=== PATIENT | male | born 1940 | race Caucasian/White ===

== ENCOUNTER 2016-11-26 13:17 | Outpatient (CLI) | payer MEDICARE, OTHER | END 2016-11-26 13:18 | disposition home or self-care (01) | DX: R50.9 Fever, unspecified (principal) ==

== ENCOUNTER 2016-12-09 10:12 | Outpatient (CLI) | payer MEDICARE, OTHER | END 2016-12-09 10:13 | disposition home or self-care (01) | DX: S92.321A Displaced fracture of second metatarsal bone, right foot, initial encounter for closed fracture (principal); S92.331A Displaced fracture of third metatarsal bone, right foot, initial encounter for closed fracture; X58.XXXA Exposure to other specified factors, initial encounter ==

== ENCOUNTER 2017-01-15 13:49 | Outpatient (CLI) | payer MEDICARE, OTHER | END 2017-01-15 13:50 | disposition home or self-care (01) | DX: S92.321D Displaced fracture of second metatarsal bone, right foot, subsequent encounter for fracture with routine healing (principal); S92.331D Displaced fracture of third metatarsal bone, right foot, subsequent encounter for fracture with routine healing ==

== ENCOUNTER 2017-01-20 07:30 | Outpatient (CLI) | payer MEDICARE, OTHER | END 2017-01-20 07:31 | disposition home or self-care (01) | DX: Z94.1 Heart transplant status (principal) ==

== ENCOUNTER 2017-02-18 16:58 | Outpatient (CLI) | payer MEDICARE, OTHER | END 2017-02-18 16:59 | disposition home or self-care (01) | DX: S92.324D Nondisplaced fracture of second metatarsal bone, right foot, subsequent encounter for fracture with routine healing (principal); S92.334D Nondisplaced fracture of third metatarsal bone, right foot, subsequent encounter for fracture with routine healing ==

== ENCOUNTER 2017-03-10 08:00 | Outpatient (CLI) | payer MEDICARE, OTHER | END 2017-03-10 08:01 | LOC: LAB.R 08:00 | PROVIDERS: ATTEND Internal Medicine Advanced Heart Failure and Transplant Cardiology | DX: R19.7 Diarrhea, unspecified (principal); Z94.1 Heart transplant status | CPT/HCPCS: 87045; 87046; 87177; 87209; 87493 ==

== ENCOUNTER 2017-03-11 08:00 | Outpatient (CLI) | payer MEDICARE, OTHER ==
[2017-03-11 08:39] LABS: BASOPHILS % (AUTO) 0.4 %; EOSINOPHILS % (AUTO) 0.6 %; HCT - HEMATOCRIT 35.5 % (42.0-52.0); HGB - HEMOGLOBIN 12.1 g/dL (14.0-18.0); LYMPHOCYTES # (AUTO) 0.8 10^3/uL (1.5-3.5); LYMPHOCYTES % (AUTO) 13.6 %; MEAN CORPUSCULAR HEMOGLOBIN 28.1 pg (27.0-31.0); MEAN CORPUSCULAR HGB CONC 34.2 g/dL (32.0-36.0); MEAN CORPUSCULAR VOLUME 82.2 fL (80.0-94.0); MEAN PLATELET VOLUME 8.5 fL (7.4-11.4); MONOCYTES # (AUTO) 0.5 10^3/uL (0.0-1.0); MONOCYTES % (AUTO) 8.3 %; NEUTROPHILS # (AUTO) 4.8 10^3/uL (1.5-6.6); NEUTROPHILS % (AUTO) 77.1 %; NUCLEATED RED BLOOD CELLS AUTO 0.1 /100WBC; RED BLOOD COUNT 4.32 10^6/uL (4.70-6.10); RED CELL DISTRIBUTION WIDTH 16.7 % (12.0-15.0); UNCORRECTED WHITE BLOOD COUNT 6.2 x10^3/uL; WHITE BLOOD COUNT 6.2 x10^3/uL (4.8-10.8)
[2017-03-11 08:59] LABS: CALCIUM 8.5 mg/dL (8.5-10.3); CREATININE 2.9 mg/dL (0.6-1.2); POTASSIUM 3.7 mmol/L (3.5-5.0)
[2017-03-13 11:05] LABS: TEST RESULT REPORT (())
== END 2017-03-11 08:01 | disposition home or self-care (01) ==
LOC: LAB 08:00
PROVIDERS: ATTEND Internal Medicine Advanced Heart Failure and Transplant Cardiology
DX: Z94.1 Heart transplant status (principal); R31.9 Hematuria, unspecified; R19.7 Diarrhea, unspecified; R50.9 Fever, unspecified
CPT/HCPCS: 36415; 80048; 80195; 81599; 85025; 87040; 87086

== ENCOUNTER 2017-03-20 08:03 | Outpatient (CLI) | payer MEDICARE, OTHER ==
[2017-03-20 08:34] LABS: ALBUMIN/GLOBULIN RATIO 0.9 (1.0-2.2); BILIRUBIN,TOTAL 0.4 mg/dL (0.2-1.0); CALCIUM 9.1 mg/dL (8.5-10.3); CREATININE 4.8 mg/dL (0.6-1.2); POTASSIUM 4.2 mmol/L (3.5-5.0); TOTAL PROTEIN 6.2 g/dL (6.7-8.2)
== END 2017-03-20 08:04 | disposition home or self-care (01) ==
LOC: LAB 08:03
PROVIDERS: ATTEND Internal Medicine
DX: N17.9 Acute kidney failure, unspecified (principal); N18.9 Chronic kidney disease, unspecified
CPT/HCPCS: 36415; 80053

== ENCOUNTER 2017-03-26 07:54 | Outpatient (CLI) | payer MEDICARE, OTHER ==
[2017-03-28 16:53] LABS: TEST RESULT REPORT (())
== END 2017-03-26 07:55 | disposition home or self-care (01) ==
LOC: LAB 07:54
PROVIDERS: ATTEND Internal Medicine
DX: Z94.1 Heart transplant status (principal)
CPT/HCPCS: 36415; 80053; 80195; 81599

== ENCOUNTER 2017-03-26 09:05 | Outpatient (CLI) | payer MEDICARE, OTHER ==
[2017-03-26 16:05] LABS: ALBUMIN/GLOBULIN RATIO 1.1 (1.0-2.2); BILIRUBIN,TOTAL 0.4 mg/dL (0.2-1.0); CALCIUM 8.7 mg/dL (8.5-10.3); CREATININE 4.6 mg/dL (0.6-1.2); POTASSIUM 4.2 mmol/L (3.5-5.0); TOTAL PROTEIN 6.4 g/dL (6.7-8.2)
== END 2017-03-26 09:06 | disposition home or self-care (01) ==
LOC: LAB.R 09:05
PROVIDERS: ATTEND Physician Assistant Medical
DX: N18.9 Chronic kidney disease, unspecified (principal)
CPT/HCPCS: 80053

== ENCOUNTER 2017-04-29 09:59 | Outpatient (CLI) | payer MEDICARE, OTHER ==
[2017-04-29 10:54] LABS: CALCIUM 8.7 mg/dL (8.5-10.3); MAGNESIUM 2.4 mg/dL (1.7-2.8); PHOSPHORUS 3.6 mg/dL (2.5-4.6)
== END 2017-04-29 10:00 | disposition home or self-care (01) ==
LOC: LAB 09:59
PROVIDERS: ATTEND Internal Medicine Nephrology
DX: Z94.1 Heart transplant status (principal)
CPT/HCPCS: 36415; 80069; 82570; 83735; 84133; 84156

== ENCOUNTER 2017-05-24 09:19 | Outpatient (CLI) | payer MEDICARE, OTHER ==
--- NOTE | 2017-05-24 17:55 | Ultrasound Report ---
EXAM: INGUINAL ULTRASOUND EXAM DATE: 05/24/2017 09:48 AM. CLINICAL HISTORY: 1 week of intermittent right groin pain. COMPARISON: None. TECHNIQUE: Real-time sonographic imaging of the inguinal canals and vascular structures, including co angel-flow, was performed by the piece dyeing machine tender. Multiple pharmaceutical specialty representative static images were saved for revi ew. FINDINGS: Hernia: Right inguinal hernia neck measures approximately 1.2 x 1.0 cm in diameter. The hernia sac co ntains bowel and measures approximately 5 x 2 cm with the patient in upright position. The hernia is easily reducible with probe pressure. Soft Tissues: No fluid collection or adenopathy demonstrated. Other: None. IMPRESSION: Reducible, bowel-containing right inguinal hernia. [facility] Referring Provider Line: [phone] SITE ID: [id number]
== END 2017-05-24 09:20 | disposition home or self-care (01) ==
LOC: DI 09:19
PROVIDERS: ATTEND Physician Assistant Medical
DX: K40.90 Unilateral inguinal hernia, without obstruction or gangrene, not specified as recurrent (principal)
CPT/HCPCS: 76857

== ENCOUNTER 2017-08-04 09:44 | Outpatient (CLI) | payer MEDICARE, OTHER | END 2017-08-04 09:45 | disposition home or self-care (01) | LOC: SC 09:44 | PROVIDERS: ATTEND Specialist | DX: G47.33 Obstructive sleep apnea (adult) (pediatric) (principal) | CPT/HCPCS: 99205; G0463; 99212 ==

== ENCOUNTER 2017-08-19 09:25 | Outpatient (CLI) | payer MEDICARE, OTHER ==
[2017-08-19 09:35] LABS: BASOPHILS % (AUTO) 0.9 %; EOSINOPHILS # (AUTO) 0.2 10^3/uL (0.0-0.7); EOSINOPHILS % (AUTO) 3.6 %; HCT - HEMATOCRIT 35.7 % (42.0-52.0); HGB - HEMOGLOBIN 11.9 g/dL (14.0-18.0); LYMPHOCYTES # (AUTO) 1.4 10^3/uL (1.5-3.5); LYMPHOCYTES % (AUTO) 31.2 %; MEAN CORPUSCULAR HEMOGLOBIN 28.2 pg (27.0-31.0); MEAN CORPUSCULAR HGB CONC 33.3 g/dL (32.0-36.0); MEAN CORPUSCULAR VOLUME 84.7 fL (80.0-94.0); MEAN PLATELET VOLUME 8.3 fL (7.4-11.4); MONOCYTES # (AUTO) 0.5 10^3/uL (0.0-1.0); MONOCYTES % (AUTO) 10.4 %; NEUTROPHILS # (AUTO) 2.5 10^3/uL (1.5-6.6); NEUTROPHILS % (AUTO) 53.9 %; RED BLOOD COUNT 4.22 10^6/uL (4.70-6.10); RED CELL DISTRIBUTION WIDTH 13.1 % (12.0-15.0); UNCORRECTED WHITE BLOOD COUNT 4.6 x10^3/uL; WHITE BLOOD COUNT 4.6 x10^3/uL (4.8-10.8)
== END 2017-08-19 09:26 | disposition home or self-care (01) ==
LOC: LAB 09:25
PROVIDERS: ATTEND Internal Medicine Advanced Heart Failure and Transplant Cardiology
DX: Z94.1 Heart transplant status (principal)
CPT/HCPCS: 36415; 85025

== ENCOUNTER 2017-09-13 20:28 | Outpatient (CLI) | payer MEDICARE, OTHER | END 2017-09-13 20:29 | disposition home or self-care (01) | LOC: SC 20:28 | PROVIDERS: ATTEND Specialist | DX: G47.33 Obstructive sleep apnea (adult) (pediatric) (principal); G47.61 Periodic limb movement disorder | CPT/HCPCS: 95810 ==

== ENCOUNTER 2017-10-08 13:48 | Outpatient (CLI) | payer MEDICARE, OTHER | END 2017-10-08 13:49 | disposition home or self-care (01) | LOC: SC 13:48 | PROVIDERS: ATTEND Specialist | DX: G47.33 Obstructive sleep apnea (adult) (pediatric) (principal) | CPT/HCPCS: 99214; G0463; 99212 ==

== ENCOUNTER 2017-10-11 16:53 | Emergency (ER) | payer MEDICARE, OTHER ==
--- NOTE | 2017-10-11 17:18 | ED Physician Documentation ---
History of Present Illness - Stated complaint Stated Complaint: PVC'S - Chief complaint Chief Complaint: Cardiac - History obtained from History obtained from: Patient, Family - History of Present Illness Timing: Other (77-year-old gentleman status post heart transplant year 1999 with an episode of rejection in 2013, recently taken off prednisone about 17 days ago. Maintained on Rapamune and mycophenolate. He has been fatigued for the last 3 months and more acutely over the last week has left lower extremity edema which is new, he always has chronic right lower extremity edema. He denies any dyspnea or chest pain but feels like he is having PVCs tonight, the only other time he has had arrhythmias with his current heart is when he had a rejection back in 2013. There is no associated fever.) - Additonal information Additional information: Because of his antirejection medications he has been dealing with chronic kidney disease lately, he says the last creatinine he had done was at the [facility] approximately 2 weeks ago, it was 3.1. Review of Systems Constitutional: reports: Fatigue. denies: Fever, Chills Eyes: reports: Reviewed and negative Ears: reports: Reviewed and negative Nose: reports: Reviewed and negative Throat: reports: Reviewed and negative Cardiac: reports: Palpitations, Pedal edema, Calf pain. denies: Chest pain / pressure Respiratory: denies: Dyspnea, Cough GI: denies: Abdominal Pain, Nausea PD PAST MEDICAL HISTORY - Past Medical History Cardiovascular: Hypertension, High cholesterol Respiratory: None Neuro: None Endocrine/Autoimmune: None GI: None : None HEENT: None Psych: None Musculoskeletal: None Derm: None - Past Surgical History Past Surgical History: Yes General: Cholecystectomy Cardiovascular: Other - Present Medications Home Medications: Ambulatory Orders Medication Instructions Recorded Confirmed Aspirin [Aspir 81] 81 mg PO DAILY 04/19/13 10/11/17 Calcium Citrate/Vitamin D3 1 each PO DAILY 04/19/13 10/11/17 [Calcium Citrate - Vit D Caplet] Multivitamin [Multivitamins] 1 each PO DAILY 04/19/13 10/11/17 Pravastatin Sodium [Pravachol] 20 mg PO DAILY 04/19/13 10/11/17 Sildenafil Citrate [Viagra] 12.5 mg PO DAILY PRN 04/19/13 10/11/17 Zaleplon [Sonata] 5 mg PO DAILY PRN 05/02/13 10/11/17 Sirolimus [Rapamune] 2 mg PO DAILY 08/22/14 10/11/17 Losartan Potassium 25 mg PO DAILY 10/11/17 10/11/17 Mycophenolate Mofetil 750 mg PO DAILY 10/11/17 10/11/17 - Allergies Allergies/Adverse Reactions: Allergies Allergy/AdvReac Type Severity Reaction Status Date / Time droperidol [Droperidol] Allergy Severe Hallucinati Verified 04/28/14 09:03 ons codeine phosphate * Allergy Mild Rash Verified 10/11/17 17:04 [From Tylenol-Codeine #3] acetaminophen Allergy Unknown UNKNOWN Verified 04/28/14 09:03 [From Tylenol-Codeine #3] avocado [Avocado] Allergy Hives Verified 04/28/14 09:03 RAPAMYCIN Allergy Intermediate Rash Uncoded 04/28/14 09:03 - Social History Does the pt smoke?: No Smoking Status: Former smoker Does the pt drink ETOH?: No Does the pt have substance abuse?: No - Family History Family history: reports: Non contributory - Immunizations Immunizations are current?: Yes PD ED PE NORMAL - Vitals Vital signs reviewed: Yes - General General: Alert and oriented X 3, No acute distress - HEENT HEENT: PERRL, EOMI - Neck Neck: Supple, no meningeal sign, No bony TTP - Cardiac Cardiac: RRR (With occasional PVCs, also has a very subtle diastolic murmur heard at the right upper sternal border.) - Respiratory Respiratory: No respiratory distress, Clear bilaterally - Abdomen Abdomen: Normal bowel sounds, Soft, Non tender - Back Back: No CVA TTP, No spinal TTP - Derm Derm: Normal color, Warm and dry - Extremities Extremities: No calf tenderness / cord, Other (2 BLE edema) - Neuro Neuro: Alert and oriented X 3, Normal speech - Psych Psych: Normal mood, Normal affect Results - Vitals Vitals: Vital Signs - 24 hr 10/11/17 10/11/17 17:00 17:58 Temperature 37.2 C Heart Rate 90 88 Respiratory 18 21 Rate Blood Pressure 155/67 H 143/68 H O2 Saturation 100 100 Oxygen O2 Source Room air - EKG (time done) 1700 Rate: Rate (enter#) (91) Rhythm: NSR (Regular narrow complex rhythm with long [place] Interval. And frequent monomorphic PVCs) [place]: Normal Intervals: RBBB Ischemia: No: ST elevation c/w ischemia Computer interpretation: Agree with computer - Labs Labs: Laboratory Tests 10/11/17 10/11/17 10/11/17 17:15 17:15 17:15 WBC 4.5 L RBC 3.74 L Hgb 10.5 L Hct 31.4 L MCV 84.0 MCH 28.2 MCHC 33.5 RDW 13.6 Plt Count 140 MPV 8.6 Neut # 2.8 Lymph # 1.1 L [place] # 0.5 Eos # 0.2 Baso # 0.0 Absolute Nucleated RBC 0.00 Nucleated RBC % 0.0 PT 12.2 INR 1.1 Sodium 134 L Potassium 3.8 Chloride 98 L Carbon Dioxide 22 Anion Gap 14.0 H BUN 65 H Creatinine 3.3 H Estimated GFR (MDRD) 18 L Glucose 118 H Calcium 8.8 Magnesium 2.2 Total Bilirubin 0.5 AST 21 ALT 19 Alkaline Phosphatase 50 Total Creatine Kinase 97 CK-MB (CK-2) Troponin I B-Natriuretic Peptide Total Protein 6.6 L Albumin 3.4 Globulin 3.2 Albumin/Globulin Ratio 1.1 Lipase 25 TSH Urine Color Urine Clarity Urine pH Ur Specific [place] Urine Protein Urine Glucose (UA) Urine Ketones Urine Occult Blood Urine Nitrite Urine Bilirubin Urine Urobilinogen Ur Leukocyte Esterase Ur Microscopic Review Urine Culture Comments 10/11/17 10/11/17 10/11/17 17:15 17:15 17:15 WBC RBC Hgb Hct MCV MCH MCHC RDW Plt Count MPV Neut # Lymph # [place] # Eos # Baso # Absolute Nucleated RBC Nucleated RBC % PT INR Sodium Potassium Chloride Carbon Dioxide Anion Gap BUN Creatinine Estimated GFR (MDRD) Glucose Calcium Magnesium Total Bilirubin AST ALT Alkaline Phosphatase Total Creatine Kinase CK-MB (CK-2) 1.1 Troponin I < 0.04 B-Natriuretic Peptide 258 H Total Protein Albumin Globulin Albumin/Globulin Ratio Lipase TSH 3.64 Urine Color Urine Clarity Urine pH Ur Specific [place] Urine Protein Urine Glucose (UA) Urine Ketones Urine Occult Blood Urine Nitrite Urine Bilirubin Urine Urobilinogen Ur Leukocyte Esterase Ur Microscopic Review Urine Culture Comments 10/11/17 17:59 WBC RBC Hgb Hct MCV MCH MCHC RDW Plt Count MPV Neut # Lymph # [place] # Eos # Baso # Absolute Nucleated RBC Nucleated RBC % PT INR Sodium Potassium Chloride Carbon Dioxide Anion Gap BUN Creatinine Estimated GFR (MDRD) Glucose Calcium Magnesium Total Bilirubin AST ALT Alkaline Phosphatase Total Creatine Kinase CK-MB (CK-2) Troponin I B-Natriuretic Peptide Total Protein Albumin Globulin Albumin/Globulin Ratio Lipase TSH Urine Color YELLOW Urine Clarity CLEAR Urine pH 6.0 Ur Specific [place] 1.020 Urine Protein TRACE Urine Glucose (UA) NEGATIVE Urine Ketones NEGATIVE Urine Occult Blood TRACE-INTA Urine Nitrite NEGATIVE Urine Bilirubin NEGATIVE Urine Urobilinogen 0.2 (NORMAL) Ur Leukocyte Esterase NEGATIVE Ur Microscopic Review NOT INDICATED Urine Culture Comments NOT INDICATED - Rads (name of study) 2v chest Radiology: EMP read contemporaneously (NAD) BLE duplex Radiology: Prelim report reviewed (neg for DVT bilaterally) PD MEDICAL DECISION MAKING - ED course ED course: 77yo male with H/O heart transplant with fatigue and PVCs. Mild increase in chronic anemia and renal failure. PVCs decreased with time in the ED. Potassium orally for value <4. Spoke with Dr Zabala at [facility] cardiology and needs expedited workup for this with echo +/- bx. He was accepted by him to [facility]. Departure - Departure Disposition: 02 Transfer Acute Care Hosp Clinical Impression: Frequent PVCs, Heart transplant recipient Fatigue Qualifiers: Fatigue type: unspecified Qualified Code(s): R53.83 - Other fatigue Chronic renal failure Qualifiers: Chronic kidney disease stage: stage 4 (severe) Qualified Code(s): N18.4 - Chronic kidney disease, stage 4 (severe) Condition: Stable
[2017-10-11 17:28] LABS: BASOPHILS % (AUTO) 0.7 %; EOSINOPHILS # (AUTO) 0.2 10^3/uL (0.0-0.7); EOSINOPHILS % (AUTO) 3.3 %; HCT - HEMATOCRIT 31.4 % (42.0-52.0); HGB - HEMOGLOBIN 10.5 g/dL (14.0-18.0); LYMPHOCYTES # (AUTO) 1.1 10^3/uL (1.5-3.5); LYMPHOCYTES % (AUTO) 23.2 %; MEAN CORPUSCULAR HEMOGLOBIN 28.2 pg (27.0-31.0); MEAN CORPUSCULAR HGB CONC 33.5 g/dL (32.0-36.0); MEAN PLATELET VOLUME 8.6 fL (7.4-11.4); MONOCYTES # (AUTO) 0.5 10^3/uL (0.0-1.0); MONOCYTES % (AUTO) 10.5 %; NEUTROPHILS # (AUTO) 2.8 10^3/uL (1.5-6.6); NEUTROPHILS % (AUTO) 62.3 %; RED BLOOD COUNT 3.74 10^6/uL (4.70-6.10); RED CELL DISTRIBUTION WIDTH 13.6 % (12.0-15.0); UNCORRECTED WHITE BLOOD COUNT 4.5 x10^3/uL; WHITE BLOOD COUNT 4.5 x10^3/uL (4.8-10.8)
[2017-10-11 17:35] LABS: INR 1.1 (0.8-1.2); PT - PROTHROMBIN TIME 12.2 secs (9.9-12.6)
[2017-10-11 17:44] LABS: ALBUMIN/GLOBULIN RATIO 1.1 (1.0-2.2); BILIRUBIN,TOTAL 0.5 mg/dL (0.2-1.0); CALCIUM 8.8 mg/dL (8.5-10.3); CREATININE 3.3 mg/dL (0.6-1.2); MAGNESIUM 2.2 mg/dL (1.7-2.8); POTASSIUM 3.8 mmol/L (3.5-5.0); TOTAL PROTEIN 6.6 g/dL (6.7-8.2)
[2017-10-11 17:47] LABS: TROPONIN I < 0.04 ng/mL (<0.49)
[2017-10-11 17:49] LABS: CREATINE KINASE MB 1.1 ng/mL (0.6-6.3)
[2017-10-11] MEDS ORDERED: POTASSIUM BICARB 25 MEQ TABLET PO STA (17:58)
[2017-10-11 18:03] LABS: BILIRUBIN,URINE NEGATIVE (NEGATIVE)
[2017-10-11 18:07] LABS: UA CHARGE (STRIP ONLY) YES; UR CULTURE IF IND NOT INDICATED
--- NOTE | 2017-10-11 18:56 | XRAY Preliminary Report ---
Exam: XR CHEST 2 VIEW PA/LAT IMPRESSION: No evidence of acute cardiopulmonary disease. [facility] SITE ID: [id number]
--- NOTE | 2017-10-11 18:59 | XRAY Report ---
EXAM: CHEST RADIOGRAPHY EXAM DATE: 10/11/2017 05:36 PM. CLINICAL HISTORY: Fatigue, s/p remote heart xplant. COMPARISON: 10/20/2014. TECHNIQUE: 2 views. FINDINGS: Lungs/Pleura: No focal opacities evident. No pleural effusion. No pneumothorax. Normal volumes. Mediastinum: Stable postoperative changes. Other: None. IMPRESSION: No evidence of acute cardiopulmonary disease. [facility] Referring Provider Line: [phone] SITE ID: [id number]
--- NOTE | 2017-10-11 19:17 | Ultrasound Preliminary Report ---
Exam: US DUPLEX EXT VEINS BILATERAL IMPRESSION: No evidence for deep venous thrombosis bilaterally. [facility] SITE ID: [id number]
--- NOTE | 2017-10-11 19:19 | Ultrasound Report ---
EXAM: BILATERAL LOWER EXTREMITY VENOUS ULTRASOUND EXAM DATE: 10/11/2017 06:50 PM. CLINICAL HISTORY: Chronic RLE edema. New LLE edema. COMPARISON: 08/12/2016. TECHNIQUE: Real-time sonographic vascular imaging was performed by the car driver through the lower extremities utilizing both color-flow and Doppler spectral analysis. Multiple housing management representative static i mages were saved for review. FINDINGS: Right: Common Femoral Vein (CFV): Normal. CFV-GSV Junction: Normal. Profunda Femoral Vein (PFV): Normal. Femoral Vein (FV) Prox: Normal. Femoral Vein (FV) Mid: Normal. Femoral Vein (FV) Dist: Normal. Popliteal Vein: Normal. Posterior Tibial Veins: Normal. Peroneal Veins: Normal. Left: Common Femoral Vein (CFV): Normal. CFV-GSV Junction: Normal. Profunda Femoral Vein (PFV): Normal. Femoral Vein (FV) Prox: Normal. Femoral Vein (FV) Mid: Normal. Femoral Vein (FV) Dist: Normal. Popliteal Vein: Normal. Posterior Tibial Veins: Normal. Peroneal Veins: Normal. Other: None. IMPRESSION: No evidence for deep venous thrombosis bilaterally. [facility] Referring Provider Line: [phone] SITE ID: [id number]
[2017-10-11 20:28] VITALS: BP 139/59
== END 2017-10-11 20:55 | disposition short-term general hospital (02) ==
LOC: ED 16:53
DX: I49.3 Ventricular premature depolarization (principal); Z94.1 Heart transplant status; I12.9 Hypertensive chronic kidney disease with stage 1 through stage 4 chronic kidney disease, or unspecified chronic kidney disease; N18.4 Chronic kidney disease, stage 4 (severe); D63.1 Anemia in chronic kidney disease; R53.83 Other fatigue; I45.2 Bifascicular block; R94.31 Abnormal electrocardiogram [ECG] [EKG]; E78.00 Pure hypercholesterolemia, unspecified; Z79.82 Long term (current) use of aspirin; Z87.891 Personal history of nicotine dependence
CPT/HCPCS: 36415; 71020; 80053; 81003; 82550; 82553; 83690; 83735; 83880; 84443; 84484; 85025; 85610; 93005; 93970; 99284; A9270; 81001; 87086

== ENCOUNTER 2017-10-11 20:58 | Outpatient (CLI) | payer MEDICARE, OTHER | END 2017-10-11 20:59 | disposition short-term general hospital (02) | LOC: EMS 20:58 | PROVIDERS: ATTEND Surgery | DX: I49.3 Ventricular premature depolarization (principal); Z94.1 Heart transplant status | CPT/HCPCS: A0170; A0425; A0426 ==

== ENCOUNTER 2017-11-23 12:09 | Outpatient (CLI) | payer MEDICARE, OTHER | END 2017-11-23 12:10 | disposition home or self-care (01) | LOC: LAB.R 12:09 | PROVIDERS: ATTEND Internal Medicine | DX: M25.539 Pain in unspecified wrist (principal) | CPT/HCPCS: 36415; 84550 ==

== ENCOUNTER 2017-11-24 16:40 | Outpatient (CLI) | payer MEDICARE, OTHER ==
--- NOTE | 2017-11-25 09:40 | XRAY Report ---
DATE OF SERVICE: 11/24/2017 TWO VIEW RIGHT WRIST: 11/24/2017 CLINICAL INDICATION: Pain. FINDINGS: Frontal and lateral views of the right wrist demonstrate moderate osteoarthritis of the first carpometacarpal joint. Chondrocalcinosis is noted. There is no evidence of acute fracture or dislocation. IMPRESSION: MODERATE OSTEOARTHRITIS, WITH CHONDROCALCINOSIS. TD: 11/25/2017 10:39
== END 2017-11-24 16:41 | disposition home or self-care (01) ==
LOC: DI 16:40
PROVIDERS: ATTEND Internal Medicine Nephrology
DX: M25.531 Pain in right wrist (principal); M19.031 Primary osteoarthritis, right wrist; M11.231 Other chondrocalcinosis, right wrist

== ENCOUNTER 2017-12-01 10:15 | Outpatient (CLI) | payer MEDICARE, OTHER | END 2017-12-01 10:16 | disposition home or self-care (01) | LOC: SC 10:15 | PROVIDERS: ATTEND Nurse Practitioner Family | DX: G47.33 Obstructive sleep apnea (adult) (pediatric) (principal) | CPT/HCPCS: 99213; G0463; 99212 ==

== ENCOUNTER 2018-02-16 09:07 | Outpatient (CLI) | payer MEDICARE, OTHER ==
[2018-02-16 09:38] LABS: ALBUMIN 4.1 g/dL (3.2-5.5); ALBUMIN/GLOBULIN RATIO 1.6 (1.0-2.2); BILIRUBIN,TOTAL 0.5 mg/dL (0.2-1.0); CALCIUM 8.8 mg/dL (8.5-10.3); CREATININE 3.1 mg/dL (0.6-1.2); TOTAL PROTEIN 6.6 g/dL (6.7-8.2)
[2018-02-16 09:42] LABS: BASOPHILS % (AUTO) 0.6 %; EOSINOPHILS # (AUTO) 0.1 10^3/uL (0.0-0.7); EOSINOPHILS % (AUTO) 2.2 %; HGB - HEMOGLOBIN 11.7 g/dL (14.0-18.0); LYMPHOCYTES # (AUTO) 1.4 10^3/uL (1.5-3.5); MEAN CORPUSCULAR HEMOGLOBIN 27.9 pg (27.0-31.0); MEAN CORPUSCULAR HGB CONC 33.1 g/dL (32.0-36.0); MEAN CORPUSCULAR VOLUME 84.2 fL (80.0-94.0); MEAN PLATELET VOLUME 8.6 fL (7.4-11.4); MONOCYTES # (AUTO) 0.6 10^3/uL (0.0-1.0); MONOCYTES % (AUTO) 11.2 %; PLT - PLATELET COUNT 139 10^3/uL (130-450); RED CELL DISTRIBUTION WIDTH 16.2 % (12.0-15.0)
== END 2018-02-16 09:08 | disposition home or self-care (01) ==
LOC: LAB 09:07
PROVIDERS: ATTEND Physician Assistant Medical
DX: M1A.9XX0 Chronic gout, unspecified, without tophus (tophi) (principal); Z79.899 Other long term (current) drug therapy
CPT/HCPCS: 36415; 80053; 84550; 85025

== ENCOUNTER 2018-03-02 10:46 | Outpatient (CLI) | payer MEDICARE, OTHER | END 2018-03-02 10:47 | disposition home or self-care (01) | LOC: SC 10:46 | PROVIDERS: ATTEND Nurse Practitioner Family | DX: G47.33 Obstructive sleep apnea (adult) (pediatric) (principal) | CPT/HCPCS: 99214; G0463; 99212 ==

== ENCOUNTER 2018-04-21 08:21 | Outpatient (CLI) | payer MEDICARE, OTHER | END 2018-04-21 08:22 | disposition home or self-care (01) | LOC: LAB 08:21 | PROVIDERS: ATTEND Internal Medicine Advanced Heart Failure and Transplant Cardiology | DX: Z94.1 Heart transplant status (principal) | CPT/HCPCS: 36415; 80195; 81599 ==

== ENCOUNTER 2018-05-03 09:52 | Outpatient (CLI) | payer MEDICARE, OTHER | END 2018-05-03 09:53 | disposition home or self-care (01) | LOC: SC 09:52 | PROVIDERS: ATTEND Nurse Practitioner Family | DX: G47.33 Obstructive sleep apnea (adult) (pediatric) (principal) | CPT/HCPCS: 99214; G0463; 99212 ==

== ENCOUNTER 2018-05-06 07:46 | Outpatient (CLI) | payer MEDICARE, OTHER ==
[2018-05-06 08:49] LABS: HGB - HEMOGLOBIN 11.2 g/dL (14.0-18.0); MEAN CORPUSCULAR HEMOGLOBIN 28.9 pg (27.0-31.0); MEAN CORPUSCULAR HGB CONC 33.5 g/dL (32.0-36.0); MEAN CORPUSCULAR VOLUME 86.2 fL (80.0-94.0); MEAN PLATELET VOLUME 8.9 fL (7.4-11.4); RED BLOOD COUNT 3.89 10^6/uL (4.70-6.10); RED CELL DISTRIBUTION WIDTH 14.2 % (12.0-15.0); WHITE BLOOD COUNT 3.1 x10^3/uL (4.8-10.8)
[2018-05-06 09:05] LABS: CALCIUM 8.7 mg/dL (8.5-10.3); CREATININE 3.1 mg/dL (0.6-1.2)
== END 2018-05-06 07:47 | disposition home or self-care (01) ==
LOC: LAB 07:46
PROVIDERS: ATTEND Internal Medicine Nephrology
DX: N18.4 Chronic kidney disease, stage 4 (severe) (principal); Z94.1 Heart transplant status
CPT/HCPCS: 36415; 80048; 81599; 83970; 85027

== ENCOUNTER 2018-08-04 08:43 | Outpatient (CLI) | payer MEDICARE, OTHER | END 2018-08-04 08:44 | disposition home or self-care (01) | LOC: SC 08:43 | PROVIDERS: ATTEND Nurse Practitioner Family | DX: G47.33 Obstructive sleep apnea (adult) (pediatric) (principal) | CPT/HCPCS: 99214; G0463; 99212 ==

== ENCOUNTER 2018-09-28 18:01 | Outpatient (CLI) | payer MEDICARE, OTHER ==
--- NOTE | 2018-10-01 05:40 | XRAY Report ---
Reason: ACUTE PAIN LT FOREFOOT Procedure Date: 09/28/2018 Accession Number: [id number] / [id number] Procedure: XR - Foot 3 View LT CPT Code: FULL RESULT: EXAM: LEFT FOOT RADIOGRAPHY EXAM DATE: 09/28/2018 06:12 PM. CLINICAL HISTORY: Acute pain left forefoot. COMPARISON: FOOT 3 VIEW RT 02/18/2017 5:01 PM FOOT 3 VIEW LT 03/11/2016 4:06 PM. TECHNIQUE: 3 views. FINDINGS: Bones: Mildly displaced transverse fracture through the proximal shaft of the second metatarsal. Irregularity at the base of the third metatarsal appears chronic. There is a lucency at the lateral aspect of the base of the fifth metatarsal which is new from the prior study but not clearly acute fracture. Joints: Soft tissue calcification and para-articular erosion at the first metatarsophalangeal joint. No malalignment. Soft Tissues: Normal. No soft tissue swelling. IMPRESSION: 1. Acute mildly displaced fracture at the proximal shaft of the second metatarsal. 2. New nondisplaced at the base of the fifth metatarsal is not clearly an acute fracture but possible. 3. Irregularly of the base of the third metatarsal appears chronic. 4. No definitive foot malalignment. 5. Arthritic changes at the first MTP joint raises question of gout. [facility]
== END 2018-09-28 18:02 | disposition home or self-care (01) ==
LOC: DI 18:01
PROVIDERS: ATTEND Podiatrist
DX: S92.322A Displaced fracture of second metatarsal bone, left foot, initial encounter for closed fracture (principal); S92.355A Nondisplaced fracture of fifth metatarsal bone, left foot, initial encounter for closed fracture; M19.072 Primary osteoarthritis, left ankle and foot

== ENCOUNTER 2018-10-08 15:01 | Outpatient (CLI) | payer MEDICARE, OTHER ==
--- NOTE | 2018-10-12 16:14 | DEXA Report ---
Reason: FRACTURE OF UNSPECIFIED METATARSAL BONE,UNSPECIFIE Procedure Date: 10/08/2018 Accession Number: [id number] / [id number] Procedure: DEX - Dexa Spine and/or Hip CPT Code: FULL RESULT: EXAM: Dexa Spine and/or Hip DATE: 10/08/2018 3:29 PM CLINICAL HISTORY: FRACTURE OF UNSPECIFIED METATARSAL BONE TECHNIQUE: Dual energy x-ray absorptiometry (DXA) was performed on a [employer]. Regions measured are the AP Spine, femoral neck, and if needed forearm. COMPARISON: 09/08/2016 In accordance with the International Society for Clinical Densitometry (ISCD) guidelines, data from previous exams may be reanalyzed using current recommendations and techniques. This is done to allow a more accurate basis for comparison with the current study. FINDINGS: The data for the lumbar spine is as follows: BMD (g/cm/cm) T-SCORE Z-SCORE REGION L1 1.124 -0.3 0.4 L2 1.529 2.4 3.1 L3 1.466 1.9 2.6 L4 1.476 2.0 2.6 TOTAL 1.407 1.6 2.2 NOTE: All evaluable vertebrae are used for classification The data for the hip is as follows: BMD (g/cm/cm) T-SCORE Z-SCORE REGION Neck 0.809 -2.0 -0.6 TOTAL 0.843 -1.8 -0.8 NOTE: The femoral neck or total proximal femur, whichever is lowest, is used for classification. DXA RESULTS SUMMARY: Spine SCAN DATE AGE BMD CHANGE VS CHANGE VS PREVIOUS PREVIOUS % 10/08/2018 78.0 1.407 -0.005 -0.4 09/08/2016 76.0 1.412 * Denotes significant change at the 95% confidence level. Denotes dissimilar scan types or analysis methods. DXA RESULTS SUMMARY: Hip SCAN DATE AGE BMD CHANGE VS CHANGE VS PREVIOUS PREVIOUS % 10/08/2018 78.0 0.843 -0.038* -4.3* 09/08/2016 76.0 0.881 * Denotes significant change at the 95% confidence level. Denotes dissimilar scan types or analysis methods. IMPRESSION: THE WHO CLASSIFICATION BASED ON THE INTERNATIONAL REFERENCE STANDARD IS OSTEOPENIA. THE FRACTURE RISK IS INCREASED. RECOMMENDATION: Patients with diagnosis of osteoporosis or osteopenia should have regular bone mineral density assessment. For those eligible for Medicare, routine testing is allowed once every 2 years. Testing frequency can be increased for patients who have rapidly progressing disease or for those who are receiving medical therapy to restore bone mass. COMMENT: World Health Organization (WHO) definitions for osteoporosis and osteopenia: NORMAL BMD: T-score at -1.0 or higher, fracture risk is low OSTEOPENIA BMD: T-score between -1.0 and -2.5, fracture risk is increased. OSTEOPOROSIS BMD: T-score at -2.5 or lower, fracture risk is high. National Osteoporosis Foundation recommends: 1. Obtain adequate dietary calcium (at least 1200 mg per day) and vitamin D (400-800 international units per day). 2. Participate, as appropriate, in regular weightbearing and muscle-strengthening exercise. 3. Avoid tobacco use and reduce alcohol and caffeine intake. 4. For more detailed information see the website at www.NOF.org.
== END 2018-10-08 15:02 | disposition home or self-care (01) ==
LOC: DI 15:01
PROVIDERS: ATTEND Physician Assistant Medical
DX: M85.88 Other specified disorders of bone density and structure, other site (principal)
CPT/HCPCS: 77080

== ENCOUNTER 2018-10-12 08:00 | Outpatient (CLI) | payer MEDICARE, OTHER ==
[2018-10-12 08:26] LABS: BASOPHILS % (AUTO) 0.9 %; EOSINOPHILS # (AUTO) 0.1 10^3/uL (0.0-0.7); EOSINOPHILS % (AUTO) 1.6 %; HGB - HEMOGLOBIN 11.2 g/dL (14.0-18.0); LYMPHOCYTES % (AUTO) 22.6 %; MEAN CORPUSCULAR HEMOGLOBIN 28.6 pg (27.0-31.0); MEAN CORPUSCULAR HGB CONC 34.1 g/dL (32.0-36.0); MEAN CORPUSCULAR VOLUME 84.1 fL (80.0-94.0); MEAN PLATELET VOLUME 8.2 fL (7.4-11.4); MONOCYTES # (AUTO) 0.5 10^3/uL (0.0-1.0); MONOCYTES % (AUTO) 10.4 %; NEUTROPHILS # (AUTO) 2.9 10^3/uL (1.5-6.6); NEUTROPHILS % (AUTO) 64.5 %; PLT - PLATELET COUNT 147 10^3/uL (130-450); RED BLOOD COUNT 3.93 10^6/uL (4.70-6.10); RED CELL DISTRIBUTION WIDTH 14.3 % (12.0-15.0); WHITE BLOOD COUNT 4.4 x10^3/uL (4.8-10.8)
[2018-10-12 08:47] LABS: ALBUMIN/GLOBULIN RATIO 1.5 (1.0-2.2); ALKALINE PHOSPHATASE 55 IU/L (42-121); ALT ALANINE AMINOTRANSFERASE 18 IU/L (10-60); AST ASPARTATE AMINOTRANSFERASE 19 IU/L (10-42); BILIRUBIN,TOTAL 0.8 mg/dL (0.2-1.0); BUN - BLOOD UREA NITROGEN 57 mg/dL (6-20); CARBON DIOXIDE - CO2 27 mmol/L (21-32); CHLORIDE 104 mmol/L (101-111); CHOL/HDL RATIO 2.6 (<5.0); CHOLESTEROL 165 mg/dL; CK- CREATINE KINASE 65 IU/L (22-269); CREATININE 3.2 mg/dL (0.6-1.2); GFR - MDRD 19 (>89); GLUCOSE 99 mg/dL (70-100); HDL CHOLESTEROL 64 mg/dL; LDL CHOLESTEROL,CALCULATED 80 mg/dL; LDL/HDL RATIO 1.3 (<3.6); MAGNESIUM 2.3 mg/dL (1.7-2.8); SODIUM 140 mmol/L (135-145); TOTAL PROTEIN 6.7 g/dL (6.7-8.2); VLDL CHOLESTEROL 21 mg/dL
== END 2018-10-12 08:01 | disposition home or self-care (01) ==
LOC: LAB 08:00
PROVIDERS: ATTEND Internal Medicine Advanced Heart Failure and Transplant Cardiology
DX: Z94.1 Heart transplant status (principal); N18.9 Chronic kidney disease, unspecified; Z87.440 Personal history of urinary (tract) infections; N39.46 Mixed incontinence
CPT/HCPCS: 36415; 80053; 80061; 81599; 82550; 83721; 83735; 85025

== ENCOUNTER 2018-11-04 10:43 | Outpatient (CLI) | payer MEDICARE, OTHER ==
--- NOTE | 2018-11-04 18:38 | XRAY Report ---
Reason: FRACTURE 2ND MT L FOOT Procedure Date: 11/04/2018 Accession Number: [id number] / [id number] Procedure: XR - Foot 3 View LT CPT Code: FULL RESULT: EXAM: LEFT FOOT RADIOGRAPHY EXAM DATE: 11/04/2018 11:05 AM. CLINICAL HISTORY: FRACTURE 2ND MT L FOOT. COMPARISON: Left foot 3 views 09/28/2018 and left foot 3 views 03/11/2016... TECHNIQUE: 3 views. FINDINGS: Bones: 1. Probable healed fracture base of the third metatarsal. 2. Partial osseous fusion nondisplaced fracture base fifth metatarsal. 3. Probable nonfusion proximal shaft transverse fracture left second metatarsal with the extensive interval callus formation and greater conspicuity fracture line oblique view.. Joints: Normal. No subluxations. Soft Tissues: Soft tissue calcification medial aspect of the first metatarsal head with erosion and small overhanging margin increased from 09/28/2018. 09/28/2018. Soft tissue calcification medial aspect first metatarsal head left foot 3 views 03/11/2018. IMPRESSION: 1. Chronic soft tissue calcification medial aspect first metatarsal head and medial left first metatarsal head erosion with small overhanging margin oblique view is strongly suspicious for gout. 2. Transverse fracture proximal shaft second metatarsal with 2.7 mm offset and increased conspicuity of the transverse fracture line as well as extensive periosteal new bone formation. Probable osseous nonfusion. 3. Partial osseous fusion nondisplaced transverse fracture base left fifth metatarsal. 4. Healed nondisplaced fracture third metatarsal base. [facility]
== END 2018-11-04 10:44 | disposition home or self-care (01) ==
LOC: DI 10:43
PROVIDERS: ATTEND Podiatrist
DX: S92.322A Displaced fracture of second metatarsal bone, left foot, initial encounter for closed fracture (principal); S92.355A Nondisplaced fracture of fifth metatarsal bone, left foot, initial encounter for closed fracture; M25.872 Other specified joint disorders, left ankle and foot

== ENCOUNTER 2018-12-09 12:10 | Emergency (ER) | payer MEDICARE, OTHER ==
[2018-12-09 12:16] VITALS: BP 158/68
[2018-12-09] MEDS ORDERED: cephALEXin 250 MG CAPSULE PO STA (12:36)
[2018-12-09] MEDS ORDERED: BUFFERED LIDOCAINE 10 ML SYRINGE SUBQ STA (12:36)
--- NOTE | 2018-12-09 12:39 | ED Physician Documentation ---
PD HPI UPPER EXT INJURY - Stated complaint Stated Complaint: RIGHT INDEX FINGER CUT - Chief complaint Chief Complaint: Laceration - History obtained from History obtained from: Patient - History of Present Illness Location: Right (This is a right-handed gentleman who is up-to-date on tetanus. He is status post heart transplant. He was woodworking at home today and got the tip of his right index finger caught up in the [place] saw and has a tissue defect there.) Review of Systems Constitutional: reports: Reviewed and negative Cardiac: reports: Reviewed and negative Respiratory: reports: Reviewed and negative PD PAST MEDICAL HISTORY - Past Medical History Past Medical History: Yes Cardiovascular: Hypertension, NC Respiratory: None Endocrine/Autoimmune: None GI: None : None HEENT: None Psych: None Musculoskeletal: None Derm: None - Past Surgical History Past Surgical History: Yes General: Cholecystectomy Cardiovascular: Other - Present Medications Home Medications: Ambulatory Orders Medication Instructions Recorded Confirmed Aspirin [Aspir 81] 81 mg PO DAILY 04/19/13 10/11/17 Calcium Citrate/Vitamin D3 1 each PO DAILY 04/19/13 10/11/17 [Calcium Citrate - Vit D Caplet] Multivitamin [Multivitamins] 1 each PO DAILY 04/19/13 10/11/17 Pravastatin Sodium [Pravachol] 20 mg PO DAILY 04/19/13 10/11/17 Sildenafil Citrate [Viagra] 12.5 mg PO DAILY PRN 04/19/13 10/11/17 Sirolimus [Rapamune] 2.5 mg PO DAILY 08/22/14 10/11/17 Acetaminophen 500 mg PO PRN PRN 10/11/17 10/11/17 Losartan Potassium 25 mg PO DAILY 10/11/17 10/11/17 Mycophenolate Mofetil 500 mg PO BID 10/11/17 10/11/17 Allopurinol 100 mg PO DAILY 12/09/18 12/09/18 Cephalexin [Keflex] 500 mg PO Q6H #20 capsule 12/09/18 Prednisone 5 mg PO DAILY 12/09/18 12/09/18 - Allergies Allergies/Adverse Reactions: Allergies Allergy/AdvReac Type Severity Reaction Status Date / Time droperidol [Droperidol] Allergy Severe Hallucinati Verified 12/09/18 12:22 ons codeine phosphate * Allergy Mild Rash Verified 12/09/18 12:22 [From Tylenol-Codeine #3] acetaminophen Allergy Unknown UNKNOWN Verified 12/09/18 12:22 [From Tylenol-Codeine #3] avocado [Avocado] Allergy Hives Verified 12/09/18 12:22 RAPAMYCIN Allergy Intermediate Rash Uncoded 12/09/18 12:22 - Social History Does the pt smoke?: No Smoking Status: Never smoker Does the pt drink ETOH?: No Does the pt have substance abuse?: No - Immunizations Immunizations are current?: Yes - POLST Patient has POLST: No PD ED PE NORMAL - Vitals Vital signs reviewed: Yes - General General: Alert and oriented X 3, No acute distress - Extremities Extremities: Other (There is a tissue defect on the tip of the right index finger, ulnar side. There is some nailbed loss and loss of the nail.) - Neuro Neuro: Alert and oriented X 3, Normal speech - Psych Psych: Normal mood, Normal affect Results - Vitals Vitals: Vital Signs - 24 hr 12/09/18 12:14 Temperature 36.6 C Heart Rate 88 Respiratory 18 Rate Blood Pressure 158/68 H O2 Saturation 98 Oxygen O2 Source Room air Procedures - Laceration (location) R 2nd finger Length in cm: 1 Wound type: Other (Was a jagged laceration with fact and nail and nailbed loss.) Anesthesia: Lidocaine 1%, With bicarb Wound Preparation: Irrigated copiously NS, Other (It was irrigated copiously and then the nail near the damaged nail bed was debrided.) Skin layer closure: Other (There was a significant tissue defect which could be closed with parts of the tip and the nailbed were able to be approximated with 4 x 5 0 Vicryl sutures.) Other: Tetanus UTD Complexity: Simple, Intermediate Departure - Departure Disposition: Home, Self Care Clinical Impression: Laceration Condition: Good Record reviewed to determine appropriate education?: Yes Instructions: ED Laceration Hand Prescriptions: Cephalexin [Keflex] 500 mg PO Q6H #20 capsule Comments: Follow-up with your doctor on Thursday for a wound check. Come back for any signs of infection which would include: Redness, swelling, drainage, increased pain, or fevers.
== END 2018-12-09 13:28 | disposition home or self-care (01) ==
LOC: ED 12:10
DX: S61.310A Laceration without foreign body of right index finger with damage to nail, initial encounter (principal); W29.8XXA Contact with other powered hand tools and household machinery, initial encounter; Y93.89 Activity, other specified; Y92.009 Unspecified place in unspecified non-institutional (private) residence as the place of occurrence of the external cause; I10 Essential (primary) hypertension
CPT/HCPCS: 12001; 99283; A9270

== ENCOUNTER 2018-12-31 14:42 | Outpatient (CLI) | payer MEDICARE, OTHER ==
--- NOTE | 2018-12-31 15:45 | XRAY Report ---
Reason: FRACTURE 2ND MT L FOOT Procedure Date: 12/31/2018 Accession Number: [id number] / [id number] Procedure: XR - Foot 3 View LT CPT Code: FULL RESULT: EXAM: LEFT FOOT RADIOGRAPHY EXAM DATE: 12/31/2018 02:53 PM. CLINICAL HISTORY: Fracture 2nd metatarsal left foot. COMPARISON: FOOT 3 VIEW LT 11/04/2018 10:56 AM. TECHNIQUE: 3 views. FINDINGS: Bones: Ongoing healing of transverse fractures of the second through fifth metatarsal, fracture lines in each of these bones remain visible. The bones are qualitatively osteopenic; this limits evaluation for underlying fractures or masses. Periarticular osseous destruction is seen in the first distal metatarsal, appearing similar to gout. Joints: No subluxation. Soft Tissues: Normal. No soft tissue swelling. IMPRESSION: Ongoing healing of second through fifth metatarsal fractures. Question crystalline arthropathy in the region of the first metatarsophalangeal joint. [facility]
== END 2018-12-31 14:43 | disposition home or self-care (01) ==
LOC: DI 14:42
PROVIDERS: ATTEND Podiatrist
DX: S92.322D Displaced fracture of second metatarsal bone, left foot, subsequent encounter for fracture with routine healing (principal); S92.332D Displaced fracture of third metatarsal bone, left foot, subsequent encounter for fracture with routine healing; S92.342D Displaced fracture of fourth metatarsal bone, left foot, subsequent encounter for fracture with routine healing; S92.352D Displaced fracture of fifth metatarsal bone, left foot, subsequent encounter for fracture with routine healing

== ENCOUNTER 2019-01-24 13:24 | Outpatient (CLI) | payer MEDICARE, OTHER | END 2019-01-24 13:25 | disposition home or self-care (01) | LOC: SC 13:24 | PROVIDERS: ATTEND Nurse Practitioner Family | DX: G47.33 Obstructive sleep apnea (adult) (pediatric) (principal) | CPT/HCPCS: 99214; G0463; 99212 ==

== ENCOUNTER 2019-03-07 11:05 | Outpatient (CLI) | payer MEDICARE, OTHER ==
--- NOTE | 2019-03-07 15:11 | XRAY Report ---
Reason: 5TH METATARSALS L FOOT Procedure Date: 03/07/2019 Accession Number: [id number] / [id number] Procedure: XR - Foot 3 View LT CPT Code: FULL RESULT: EXAM: LEFT FOOT RADIOGRAPHY EXAM DATE: 03/07/2019 11:25 AM. CLINICAL HISTORY: Evaluate Metatarsals left foot. COMPARISON: FOOT 3 VIEW LT 12/31/2018 2:46 PM FOOT 3 VIEW LT 09/28/2018 6:09 PM. TECHNIQUE: 3 views. FINDINGS: Bones: There is a persistent radiolucent fracture line as well as abundant bony callus surrounding the proximal diaphyseal fracture second metatarsal suggesting a nonunion. Partial lucency persists at the site of a nearly completely healed transverse fracture base of the fifth metatarsal. No other fractures appreciated. Stable degenerative changes noted of the first MTP joint with radiodense material in the adjacent soft tissues consistent with gout. Joints: As above. Soft Tissues: As above. IMPRESSION: 1. 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 2. Near complete healing of base of fifth metatarsal fracture. 3. Soft tissue deposition of radiodense material adjacent to the first MTP consistent with gout. [facility]
== END 2019-03-07 11:06 | disposition home or self-care (01) ==
LOC: DI 11:05
PROVIDERS: ATTEND Podiatrist
DX: S92.322D Displaced fracture of second metatarsal bone, left foot, subsequent encounter for fracture with routine healing (principal); S92.352D Displaced fracture of fifth metatarsal bone, left foot, subsequent encounter for fracture with routine healing

== ENCOUNTER 2019-03-24 08:18 | Outpatient (CLI) | payer MEDICARE, OTHER | END 2019-03-24 08:19 | disposition home or self-care (01) | LOC: SC 08:18 | PROVIDERS: ATTEND Nurse Practitioner Family | DX: G47.33 Obstructive sleep apnea (adult) (pediatric) (principal) | CPT/HCPCS: 99214; G0463; 99212 ==

== ENCOUNTER 2019-04-07 08:00 | Outpatient (CLI) | payer MEDICARE, OTHER ==
[2019-04-07 09:44] LABS: CALCIUM 8.7 mg/dL (8.5-10.3); CREATININE 3.1 mg/dL (0.6-1.2)
== END 2019-04-07 23:59 | disposition home or self-care (01) ==
LOC: LAB 08:00
PROVIDERS: ATTEND Internal Medicine Nephrology
DX: N18.3 Chronic kidney disease, stage 3 (moderate) (principal)
CPT/HCPCS: 36415; 80048

== ENCOUNTER 2019-04-15 11:11 | Emergency (ER) | payer MEDICARE, OTHER ==
[2019-04-15 11:28] VITALS: BP 144/67
--- NOTE | 2019-04-15 12:11 | ED Physician Documentation ---
PD HPI UPPER EXT INJURY - Stated complaint Stated Complaint: RT ARM LAC - Chief complaint Chief Complaint: Laceration - History obtained from History obtained from: Patient - History of Present Illness Location: Right (He was getting a board out from a height and fell and scraped his arm. He also got very mildly hit over the right mastoid without headache or loss of con his nose. He is not anticoagulated. He is up-to-date on tetanus.) Review of Systems Constitutional: denies: Fever, Chills Ears: reports: Reviewed and negative Throat: reports: Reviewed and negative Cardiac: reports: Reviewed and negative PD PAST MEDICAL HISTORY - Past Medical History Cardiovascular: Hypertension, [place] Respiratory: None Endocrine/Autoimmune: None GI: None : None HEENT: None Psych: None Musculoskeletal: None Derm: None - Past Surgical History Past Surgical History: Yes General: Cholecystectomy Cardiovascular: Other - Present Medications Home Medications: Ambulatory Orders Medication Instructions Recorded Confirmed Aspirin [Aspir 81] 81 mg PO DAILY 04/19/13 10/11/17 Calcium Citrate/Vitamin D3 1 each PO DAILY 04/19/13 10/11/17 [Calcium Citrate - Vit D Caplet] Multivitamin [Multivitamins] 1 each PO DAILY 04/19/13 10/11/17 Pravastatin Sodium [Pravachol] 20 mg PO DAILY 04/19/13 10/11/17 Sildenafil Citrate [Viagra] 12.5 mg PO DAILY PRN 04/19/13 10/11/17 Sirolimus [Rapamune] 2.5 mg PO DAILY 08/22/14 10/11/17 Acetaminophen 500 mg PO PRN PRN 10/11/17 10/11/17 Losartan Potassium 25 mg PO DAILY 10/11/17 10/11/17 Mycophenolate Mofetil 500 mg PO BID 10/11/17 10/11/17 Allopurinol 100 mg PO DAILY 12/09/18 12/09/18 Cephalexin [Keflex] 500 mg PO Q6H #20 capsule 12/09/18 Prednisone 5 mg PO DAILY 12/09/18 12/09/18 - Allergies Allergies/Adverse Reactions: Allergies Allergy/AdvReac Type Severity Reaction Status Date / Time droperidol [Droperidol] Allergy Severe Hallucinati Verified 04/15/19 11:19 ons codeine phosphate * Allergy Mild Rash Verified 04/15/19 11:19 [From Tylenol-Codeine #3] acetaminophen Allergy Unknown UNKNOWN Verified 04/15/19 11:19 [From Tylenol-Codeine #3] avocado [Avocado] Allergy Hives Verified 04/15/19 11:19 - Social History Does the pt smoke?: No Smoking Status: Never smoker Does the pt drink ETOH?: No Does the pt have substance abuse?: No - Immunizations Immunizations are current?: Yes - POLST Patient has POLST: No PD ED PE NORMAL - Vitals Vital signs reviewed: Yes - General General: Alert and oriented X 3, No acute distress - HEENT HEENT: PERRL, EOMI - Neck Neck: Supple, no meningeal sign, No bony TTP - Extremities Extremities: Other (He has a shallow stellate skin tear extending basically from the lateral epicondyle of the right elbow distally down the forearm measuring 6 cm. It is too shallow to suture. There is no bony tenderness or limited range of motion.) - Neuro Neuro: Alert and oriented X 3, cap inspector 2-12 intact, Normal speech Eye Opening: Spontaneous Motor: Obeys Commands Verbal: Oriented GCS Score: 15 Results - Vitals Vitals: Vital Signs - 24 hr 04/15/19 11:17 Temperature 36.6 C Heart Rate 88 Respiratory 20 Rate Blood Pressure 144/67 H O2 Saturation 98 Oxygen O2 Source Room air Procedures - Laceration (location) R elbow Length in cm: 6 Wound type: Flap, Superficial Wound Preparation: Irrigated copiously NS Skin layer closure: Other (mepitel) Other: Tetanus UTD Departure - Departure Disposition: 01 Home, Self Care Clinical Impression: Wound of skin Condition: Good Record reviewed to determine appropriate education?: Yes Instructions: ED Avulsion Dermal Comments: Your blood pressure was elevated today on check into the emergency department. This does not mean that you have hypertension, it is a common phenomenon to come to the emergency department and have elevated blood pressure. I recommend that you see your primary care physician within the week to have it rechecked when you are feeling better.
== END 2019-04-15 12:26 | disposition home or self-care (01) ==
LOC: ED 11:11
DX: S51.811A Laceration without foreign body of right forearm, initial encounter (principal); S51.011A Laceration without foreign body of right elbow, initial encounter; W45.8XXA Other foreign body or object entering through skin, initial encounter; W20.8XXA Other cause of strike by thrown, projected or falling object, initial encounter; Y93.89 Activity, other specified; I10 Essential (primary) hypertension; Z79.82 Long term (current) use of aspirin
CPT/HCPCS: 99282

== ENCOUNTER 2019-05-12 08:20 | Outpatient (CLI) | payer MEDICARE, OTHER | END 2019-05-12 08:21 | disposition home or self-care (01) | LOC: SC 08:20 | PROVIDERS: ATTEND Nurse Practitioner Family | DX: G47.33 Obstructive sleep apnea (adult) (pediatric) (principal) | CPT/HCPCS: 99215; G0463; 99212 ==

== ENCOUNTER 2019-06-02 08:30 | Outpatient (CLI) | payer MEDICARE, OTHER ==
--- NOTE | 2019-06-03 09:43 | Ultrasound Report ---
Reason: INGUINAL HERNIA Procedure Date: 06/02/2019 Accession Number: [id number] / [id number] Procedure: US - Pelvic Limited or F/U CPT Code: FULL RESULT: EXAM: INGUINAL ULTRASOUND EXAM DATE: 06/02/2019 08:45 AM. CLINICAL HISTORY: Worsening right groin pain for 2 months. Left groin lump for 2 years. COMPARISON: PELVIS LIMITED 05/24/2017 9:25 AM. TECHNIQUE: Real-time sonographic imaging of the inguinal canals and vascular structures, including color-flow, was performed by the office service coordinator. Multiple visitor services representative static images were saved for review. FINDINGS: Hernia: Reducible right inguinal hernia medial to epigastric artery with a neck of 20 x 21 mm supine, 37 x 25 mm standing. Hernia contains bowel and mesenteric fat. Reducible left inguinal hernia medial to epigastric artery with a neck of 26 x 20 mm supine, 21 x 11 mm standing, containing mesenteric fat. No bowel seen. Soft Tissues: Normal. No fluid collections or adenopathy. Other: None. IMPRESSION: Bilateral reducible direct inguinal hernias, containing mesenteric fat and bowel on the right, containing mesenteric fat on the left. RADIA
== END 2019-06-02 08:31 | disposition home or self-care (01) ==
LOC: DI 08:30
PROVIDERS: ATTEND Nurse Practitioner
DX: K40.20 Bilateral inguinal hernia, without obstruction or gangrene, not specified as recurrent (principal)
CPT/HCPCS: 76857

== ENCOUNTER 2019-08-01 17:04 | Outpatient (CLI) | payer MEDICARE, OTHER | END 2019-08-01 17:05 | disposition home or self-care (01) | LOC: DI 17:04 | PROVIDERS: ATTEND Nurse Practitioner | DX: Z53.9 Procedure and treatment not carried out, unspecified reason (principal) ==

== ENCOUNTER 2019-08-02 14:25 | Outpatient (CLI) | payer MEDICARE, OTHER ==
--- NOTE | 2019-08-04 04:59 | XRAY Report ---
Reason: PRESENCE OF AICD,ABD PAIN Procedure Date: 08/02/2019 Accession Number: [id number] / [id number] Procedure: XR - Abdomen 2 View X-Ray CPT Code: 15202 FULL RESULT: EXAM: ABDOMEN RADIOGRAPHY EXAM DATE: 08/02/2019 03:03 PM CLINICAL HISTORY: Presence of AICD, abdominal pain. COMPARISON: None. TECHNIQUE: 2 views. FINDINGS: Lung Bases: No significant consolidation. No definite effusion. Bowel Gas Pattern: No abnormal dilated bowel loops or differential air-fluid levels. Average amount of retained colonic fecal matter is noted. Free Air: No evidence of free intraperitoneal gas. Other: There is severe multilevel degenerative change within the spine. Moderate to severe right convex scoliosis of the lumbar spine. These continued electrodes project over the left hemiabdomen and left lower chest. IMPRESSION: No definite acute abdominal abnormality demonstrated. RADIA
== END 2019-08-02 14:26 | disposition home or self-care (01) ==
LOC: DI 14:25
PROVIDERS: ATTEND Nurse Practitioner
DX: R10.9 Unspecified abdominal pain (principal); Z95.810 Presence of automatic (implantable) cardiac defibrillator
CPT/HCPCS: 74019

== ENCOUNTER 2019-08-09 09:16 | Outpatient (CLI) | payer MEDICARE, OTHER ==
--- NOTE | 2019-08-09 11:39 | Ultrasound Report ---
Reason: PRESENCE OF AICD, ABDOMINAL PAIN Procedure Date: 08/09/2019 Accession Number: [id number] / [id number] Procedure: US - Abdomen Limited CPT Code: FULL RESULT: EXAM: ABDOMEN ULTRASOUND LIMITED EXAM DATE: 08/09/2019 09:32 AM. CLINICAL HISTORY: Presence of AICD, abdominal pain. COMPARISON: ABDOMEN 2 VIEW 08/02/2019 2:50 PM. TECHNIQUE: Real-time scanning was performed with static images obtained. FINDINGS: Pacemaker leads tracing through the ventral abdominal soft tissues are traced by ultrasound. Special attention is paid to the area indicated as painful by the patient. This appears to correspond to radiographic area of lead fraying. Relatively simple appearing fluid is also seen surrounding the leads more caudally, no tenderness is noted in this region. IMPRESSION: Partial fraying of pacemaker leads corresponds to the site of tenderness for the patient. Incidental note is made of a relatively simple appearing fluid collection investing the leads more cranially, asymptomatic region. RADIA
== END 2019-08-09 09:17 | disposition home or self-care (01) ==
LOC: DI 09:16
PROVIDERS: ATTEND Nurse Practitioner
DX: T82.198A Other mechanical complication of other cardiac electronic device, initial encounter (principal); R10.9 Unspecified abdominal pain
CPT/HCPCS: 76705

== ENCOUNTER 2019-08-26 09:19 | Outpatient (CLI) | payer MEDICARE, OTHER ==
--- NOTE | 2019-08-29 10:10 | CT Report ---
Reason: STATUS POST HEART TRANSPLANTATION Procedure Date: 08/26/2019 Accession Number: [id number] / [id number] Procedure: CT - ABDOMEN WO CPT Code: Final Report FULL RESULT: EXAM: CT ABDOMEN EXAM DATE: 08/26/2019 09:36 AM. CLINICAL HISTORY: STATUS POST HEART TRANSPLANTATION. COMPARISON: None. TECHNIQUE: Routine helical CT imaging was performed through the abdomen. IV contrast: None. Enteric contrast: No. Reconstruction: Coronal and sagittal. In accordance with CT protocol optimization, one or more of the following dose reduction techniques were utilized for this exam: automated exposure control, adjustment of mA and/or KV based on patient size, or use of iterative reconstructive technique. FINDINGS: Lung Bases: Unremarkable. Liver: Normal. No masses. Gallbladder/Bile Ducts: The gallbladder is absent. Spleen: Normal. Pancreas: Normal. Adrenal Glands: Normal. Kidneys: Multiple bilateral renal cysts measuring up to 1.9 cm on the left and 2.5 cm on the right. There is appear to represent simple cysts. No hydronephrosis or renal calculus. Peritoneal Cavity/Bowel: Normal. No free fluid, free air or adenopathy. No masses or acute inflammatory process. Vasculature: No aneurysms or other significant abnormality. Bones: No significant abnormality. Other: There is a left-sided subcutaneous peripherally calcified pocket overlying the left anterior pelvis containing multiple leads, 2 of which extend up to the level of the upper abdomen on the left. One of the wires terminates just deep to the skin surface along the left anterior chest (series 3, image 35) and one of the wires terminates just anterior to the anterior abdominal wall (series 3, image 59). There is a short segment of wire measuring approximately 7 mm in length just deep to the anterior abdominal wall at the level of the tip of the xiphoid (series 3, image 57). This does not appear to be contiguous with the adjacent wire superficial to the anterior abdominal wall. There is a short segment of wire measuring approximately 9.6 cm in length just deep to the skin surface along the anterior left chest. IMPRESSION: 1. There is a peripherally calcified pocket containing multiple leads in the subcutaneous tissue of the left anterior pelvis. 2 of these leads extend up to the level of the upper abdomen and left anterior chest. 2. There are 2 disk contiguous leads, one in the subcutaneous fat just deep to the anterior abdominal wall at the level of the xiphoid measuring approximately 7 mm in length and 1 within the subcutaneous fat overlying the left chest measuring approximately 9.6 cm in length. RADIA
== END 2019-08-26 09:20 | disposition home or self-care (01) ==
LOC: DI 09:19
PROVIDERS: ATTEND Internal Medicine Cardiovascular Disease
DX: Z94.1 Heart transplant status (principal)
CPT/HCPCS: 36415; 74150; 80048; 81599; 85025

== ENCOUNTER 2019-08-29 07:50 | Outpatient (CLI) | payer MEDICARE, OTHER ==
[2019-08-29 08:14] LABS: BASOPHILS % (AUTO) 0.4 %; EOSINOPHILS # (AUTO) 0.1 10^3/uL (0.0-0.7); EOSINOPHILS % (AUTO) 1.6 %; HGB - HEMOGLOBIN 11.3 g/dL (14.0-18.0); LYMPHOCYTES # (AUTO) 1.3 10^3/uL (1.5-3.5); LYMPHOCYTES % (AUTO) 26.4 %; MEAN CORPUSCULAR HEMOGLOBIN 29.1 pg (27.0-31.0); MEAN CORPUSCULAR HGB CONC 31.8 g/dL (32.0-36.0); MEAN CORPUSCULAR VOLUME 91.5 fL (80.0-94.0); MEAN PLATELET VOLUME 10.2 fL (7.4-11.4); MONOCYTES # (AUTO) 0.6 10^3/uL (0.0-1.0); MONOCYTES % (AUTO) 12.5 %; NEUTROPHILS # (AUTO) 2.9 10^3/uL (1.5-6.6); NEUTROPHILS % (AUTO) 58.1 %; PLT - PLATELET COUNT 179 10^3/uL (130-450); RED BLOOD COUNT 3.88 10^6/uL (4.70-6.10); RED CELL DISTRIBUTION WIDTH 14.8 % (12.0-15.0)
[2019-08-29 08:39] LABS: CALCIUM 9.6 mg/dL (8.5-10.3); CREATININE 3.3 mg/dL (0.6-1.2)
== END 2019-08-29 07:51 | disposition home or self-care (01) ==
LOC: LAB 07:50
PROVIDERS: ATTEND Internal Medicine Cardiovascular Disease
DX: Z94.1 Heart transplant status (principal)
CPT/HCPCS: 36415; 80048; 80158; 81599; 85025

== ENCOUNTER 2019-09-06 07:54 | Outpatient (CLI) | payer MEDICARE, OTHER ==
[2019-09-06 08:25] LABS: CALCIUM 8.7 mg/dL (8.5-10.3); CREATININE 3.3 mg/dL (0.6-1.2)
== END 2019-09-06 07:55 | disposition home or self-care (01) ==
LOC: LAB 07:54
PROVIDERS: ATTEND Internal Medicine Cardiovascular Disease
DX: Z94.1 Heart transplant status (principal)
CPT/HCPCS: 36415; 80048; 80158; 81599

== ENCOUNTER 2019-09-16 07:56 | Outpatient (CLI) | payer MEDICARE, OTHER ==
[2019-09-16 08:57] LABS: CALCIUM 9.2 mg/dL (8.5-10.3); CREATININE 3.3 mg/dL (0.6-1.2)
== END 2019-09-16 07:57 | disposition home or self-care (01) ==
LOC: LAB 07:56
PROVIDERS: ATTEND Internal Medicine Cardiovascular Disease
DX: Z94.1 Heart transplant status (principal)
CPT/HCPCS: 36415; 80048; 80158; 81599

== ENCOUNTER 2019-09-29 07:54 | Outpatient (CLI) | payer MEDICARE, OTHER ==
[2019-09-29 08:24] LABS: CALCIUM 9.1 mg/dL (8.5-10.3); CREATININE 3.4 mg/dL (0.6-1.2)
== END 2019-09-29 07:55 | disposition home or self-care (01) ==
LOC: LAB 07:54
PROVIDERS: ATTEND Internal Medicine Cardiovascular Disease
DX: Z94.1 Heart transplant status (principal)
CPT/HCPCS: 36415; 80048; 80158; 81599

== ENCOUNTER 2019-10-06 16:26 | Outpatient (CLI) | payer MEDICARE, OTHER | END 2019-10-06 16:27 | disposition critical access hospital (66) | LOC: EMS 16:26 | PROVIDERS: ATTEND Surgery | DX: R55 Syncope and collapse (principal); Z94.1 Heart transplant status | CPT/HCPCS: A0425; A0429 ==

== ENCOUNTER 2019-10-06 16:30 | Emergency (ER) | payer MEDICARE, OTHER ==
--- NOTE | 2019-10-06 16:46 | ED Physician Documentation ---
PD HPI SYNCOPE - Stated complaint Stated Complaint: NEAR SYNCOPE - Chief complaint Chief Complaint: Neuro - History obtained from History obtained from: Patient (79-year-old gentleman who is About 20 years out from a heart transplant. A few weeks ago was changed from Xarelto missed to cyclosporine in preparation for potentially a surgery. Last week he had a cyclosporine level that was very high, he says it was about 200. No dose changes yet. He was doing some woodworking at home today and became very presyncopal for about 5 minutes. Paramedics were called and found him to be in atrial fibrillation. Now feeling mostly better. There is no associated chest pain or trouble breathing.) Review of Systems Ten Systems: 10 systems reviewed and negative Constitutional: denies: Fever, Chills Nose: denies: Rhinorrhea / runny nose, Congestion Throat: denies: Sore throat Cardiac: denies: Chest pain / pressure, Palpitations Respiratory: denies: Dyspnea, Cough PD PAST MEDICAL HISTORY - Past Medical History Past Medical History: Yes Cardiovascular: Hypertension, [place], Other Respiratory: None Neuro: None Endocrine/Autoimmune: None GI: None : None HEENT: None Psych: None Musculoskeletal: None Derm: None - Past Surgical History Past Surgical History: Yes General: Cholecystectomy Cardiovascular: Other - Present Medications Home Medications: Ambulatory Orders Medication Instructions Recorded Confirmed Aspirin [Aspir 81] 81 mg PO DAILY 04/19/13 10/11/17 Calcium Citrate/Vitamin D3 1 each PO DAILY 04/19/13 10/11/17 [Calcium Citrate - Vit D Caplet] Pravastatin Sodium [Pravachol] 20 mg PO DAILY 04/19/13 10/11/17 Sildenafil Citrate [Viagra] 12.5 mg PO DAILY PRN 04/19/13 10/11/17 Acetaminophen 500 mg PO PRN PRN 10/11/17 10/11/17 Losartan Potassium 25 mg PO DAILY 10/11/17 10/11/17 Mycophenolate Mofetil 500 mg PO BID 10/11/17 10/11/17 Allopurinol 100 mg PO DAILY 12/09/18 12/09/18 Folic Acid/Vit B Complex and C 1 tab DAILY 10/06/19 10/06/19 [Klaudia-Aruna Tablet] - Allergies Allergies/Adverse Reactions: Allergies Allergy/AdvReac Type Severity Reaction Status Date / Time droperidol [Droperidol] Allergy Severe Hallucinati Verified 10/06/19 16:38 ons codeine phosphate * Allergy Mild Rash Verified 10/06/19 16:38 [From Tylenol-Codeine #3] acetaminophen Allergy Unknown UNKNOWN Verified 10/06/19 16:38 [From Tylenol-Codeine #3] avocado [Avocado] Allergy Hives Verified 10/06/19 16:38 - Social History Does the pt smoke?: No Smoking Status: Never smoker Does the pt drink ETOH?: No Does the pt have substance abuse?: No - Family History Family history: reports: Non contributory - Immunizations Immunizations are current?: Yes - POLST Patient has POLST: No PD ED PE NORMAL - Vitals Vital signs reviewed: Yes - General General: Alert and oriented X 3, No acute distress - HEENT HEENT: PERRL, EOMI - Neck Neck: Supple, no meningeal sign, No bony TTP - Cardiac Cardiac: RRR, No murmur - Respiratory Respiratory: No respiratory distress, Clear bilaterally - Abdomen Abdomen: Soft, Non tender - Back Back: No CVA TTP, No spinal TTP - Derm Derm: Normal color, Warm and dry - Extremities Extremities: No edema, No calf tenderness / cord - Neuro Neuro: Alert and oriented X 3, Normal speech Results - Vitals Vitals: Vital Signs - 24 hr 10/06/19 10/06/19 16:33 18:37 Temperature 36.3 C L Heart Rate 93 77 Respiratory 17 19 Rate Blood Pressure 129/89 H 156/80 H O2 Saturation 99 99 Oxygen O2 Source Room air - EKG (time done) 1644 Rate: Rate (enter#) (95) Rhythm: NSR (With occasional PVC) Intervals: Other (Incomplete right bundle branch block, left anterior fascicular block) Ischemia: Non specific changes Compare to prior EKG: Unchanged from prior EKG (No significant change from EKG dated October 112016) Computer interpretation: Agree with computer - Labs Labs: Laboratory Tests 10/06/19 10/06/19 10/06/19 16:50 16:50 16:50 WBC 3.8 L RBC 3.87 L Hgb 11.5 L Hct 36.5 L MCV 94.3 H MCH 29.7 MCHC 31.5 L RDW 16.4 H Plt Count 137 MPV 10.2 Neut # (Auto) 2.8 Lymph # (Auto) 0.6 L [place] # (Auto) 0.4 Eos # (Auto) 0.0 Baso # (Auto) 0.0 Absolute Nucleated RBC 0.00 Nucleated RBC % 0.0 Sodium 138 Potassium 5.1 H Chloride 104 Carbon Dioxide 23 Anion Gap 11.0 BUN 84 H* Creatinine 3.8 H Estimated GFR (MDRD) 16 L Glucose 118 H Calcium 8.7 Total Bilirubin 1.0 AST 22 ALT 26 Alkaline Phosphatase 59 Troponin I High Sens 5.8 Total Protein 6.5 L Albumin 4.1 Globulin 2.4 Albumin/Globulin Ratio 1.7 Lipase 40 PD MEDICAL DECISION MAKING - ED course ED course: 79-year-old gentleman status post remote heart transplant presents with presyncope, A. fib prior to arrival. In the department he was initially in sinus rhythm but had some episodes in the monitor looked like a junctional rhythm without significant bradycardia, it was narrow complex, basically no coordination between the P waves and QRS complexes. He was relatively asymptomatic during this. Call placed [facility] for potential transfer at 5:23 PM. Labs show chronic stable anemia, slight worsening of chronic renal insufficiency. Accepted by Dr. Biggs the [facility] at 7:37 PM pending bed availability. Cobras were completed. He is stable for transport to a higher level of care given his arrhythmias in the setting of heart transplant. Departure - Departure Disposition: 02 Transfer Acute Care Hosp Clinical Impression: Heart transplant recipient, Near syncope Chronic renal failure Qualifiers: Chronic kidney disease stage: stage 4 (severe) Qualified Code(s): N18.4 - Chronic kidney disease, stage 4 (severe) Arrhythmia Qualifiers: Arrhythmia type: unspecified cardiac arrhythmia Qualified Code(s): I49.9 - Cardiac arrhythmia, unspecified Condition: Serious
[2019-10-06 16:59] LABS: BASOPHILS % (AUTO) 0.3 %; EOSINOPHILS % (AUTO) 0.5 %; HGB - HEMOGLOBIN 11.5 g/dL (14.0-18.0); LYMPHOCYTES # (AUTO) 0.6 10^3/uL (1.5-3.5); LYMPHOCYTES % (AUTO) 15.7 %; MEAN CORPUSCULAR HEMOGLOBIN 29.7 pg (27.0-31.0); MEAN CORPUSCULAR HGB CONC 31.5 g/dL (32.0-36.0); MEAN CORPUSCULAR VOLUME 94.3 fL (80.0-94.0); MEAN PLATELET VOLUME 10.2 fL (7.4-11.4); MONOCYTES # (AUTO) 0.4 10^3/uL (0.0-1.0); NEUTROPHILS # (AUTO) 2.8 10^3/uL (1.5-6.6); NEUTROPHILS % (AUTO) 72.7 %; PLT - PLATELET COUNT 137 10^3/uL (130-450); RED BLOOD COUNT 3.87 10^6/uL (4.70-6.10); RED CELL DISTRIBUTION WIDTH 16.4 % (12.0-15.0); WHITE BLOOD COUNT 3.8 x10^3/uL (4.8-10.8)
[2019-10-06 17:14] LABS: ALBUMIN 4.1 g/dL (3.2-5.5); ALBUMIN/GLOBULIN RATIO 1.7 (1.0-2.2); CALCIUM 8.7 mg/dL (8.5-10.3); CREATININE 3.8 mg/dL (0.6-1.2); TOTAL PROTEIN 6.5 g/dL (6.7-8.2)
[2019-10-06] MEDS: SODIUM CHLORIDE 0.9% 1,000 ML IV ONE (19:10)
[2019-10-07 04:07] VITALS: BP 142/73
== END 2019-10-07 04:34 | disposition short-term general hospital (02) ==
LOC: EDUNIT# → ED 16:30
DX: R55 Syncope and collapse (principal); I49.9 Cardiac arrhythmia, unspecified; N18.4 Chronic kidney disease, stage 4 (severe); I12.9 Hypertensive chronic kidney disease with stage 1 through stage 4 chronic kidney disease, or unspecified chronic kidney disease; Z94.1 Heart transplant status
CPT/HCPCS: 36415; 80053; 83690; 84484; 85025; 93005; 96360; 99285

== ENCOUNTER 2019-11-23 11:13 | Outpatient (CLI) | payer MEDICARE, OTHER ==
[2019-11-23 12:23] VITALS: BP 130/60
--- NOTE | 2019-11-23 12:23 | SLEEP CARE CONSULTATION ---
Information from patient questionnaire entered by Elisha Garvin. I have reviewed and concur with the information entered by Elisha Garvin. This document represents the service I personally performed and the decisions made by me, Penny Fonseca, RN, MSN, INTERMEDIATE CARD TENDER. History of Present Illness Previous diagnosis: Severe, Obstructive Sleep Apnea-Hypopnea Syndrome AHI: 33.2 Reason for follow up: six month Equipment type: CPAP Equipment obtained from: [employer] Mask style: Full face (Dreamwear) Mask brand: Respironics Backup mask available: Yes Last cushion change: a few weeks ago HPI additional information: Hospitalized for 4 days after near syncope experience for evaluation of arrhythmia. Many tests completed including a holter monitor for 30days with no evidence of repeat episode. CPAP Compliance Data - Data Reviewed with Patient Average duration of nightly device use: 7.5 Compliance rate %: 99.4 (180 days) Current pressure setting (cmH2O): 8.5 Humidity settin Heated hose settin Average residual AHI: 2.5 Average large leak: 11 min 19 sec Subjective Patient concerns: reports: dry mouth, nose, throat (especially when on his back -intermittently). denies: aerophagia, mask discomfort, air blowing in eyes, mask leak noise, condensation in mask/hose, nasal congestion, epistaxis Observed to snore while using device: Yes (yes on his back ) Current pressure setting perceived as: too low (intermittently) On therapy, patient: reports: sleeping better, awakening more refreshed, being more awake and alert during the day, more rested overall. denies: drowsiness while driving Initial [place] Sleepiness Scale score: 8 Current [place] Sleepiness Scale score: 6 Allergies and Home Medications Known drug allergies: Yes Home medication list reviewed: Yes (see changes ) Allergy and home medication list: Medication Name (generic/name brand) Strength & Dosage cyclosporin 25mg 3 tabs morning and evening Mycophenolate (CellCept) 250 mg tab two twice daily Pravachol 20mg tabs one daily at bedtime Allopurinol 100mg tab one daily Losartan Potassium 50mg tab one daily Prednisone 5mg daily Sildenafil Citrate 20mg tabs 1-2 daily as directed Aspirin low dose 81mg tabs one daily Calcium Carbonate with vitamin D 600mg tabs one daily Klaudia Vit daily Allergy List Tylenol #3 Droperidol Review of Systems Review of systems same as previous: No (lightheadedness and possible arrhythmia stopped by time EMT/ holter etc) Physical Exam Blood Pressure: 130/60 Cuff size: long Heart Rate: 73 O2 Saturation: 96 Height: 6 ft 2 in Weight: 172 lb 12.8 oz Body Mass Index: 22.1 BMI Classification: Healthy weight Impression and Plan 1. Obstructive Sleep Apnea-Hypopnea Syndrome, severe, with good treatment compliance and good apnea control. On CPAP therapy, the patient has better sleep quality and is more rested overall. For intermittent air hunger and snoring when supine, I will change his CPAP pressure to 9cmH20. He is to contact me if not sufficient. Higher pressure in past caused aerophagia so did not change to autoCPAP at this time. He is going to surgery which could increase some apnea risk. He is aware to bring his CPAP to recovery and if overnight. He is also advised to bring extra mask. For oral dryness, he can try the heated hose off for more moisture and add if condensation. He also has started using Act for dry mouth with benefit noted. His dentist states his dry mouth increases risk of cavities. I also discussed having his phone in pocket if another episode of arrhythmia, he now has an [employer] watch that he can call from as well as check his heart rhythm. Patient's apnea severity and rationale for treatment to reduce apnea, improve sleep quality and reduce cardiovascular and cerebrovascular events was reviewed. I also reviewed the benefit of consistent device use of CPAP for cardiac disease, arrhythmia. * Change CPAP pressure to 9 cmH2O * Try heated hose off. * Notify me if snoring with mask or feeling that the pressure is too much or too little * Call this office if any problems using CPAP * Return for follow up in 1 year , or sooner if concerns arise Time Spent with Patient (minutes): 30 I spent 100% of this visit face to face with the patient with greater than 50% of this was spent time counseling the patient and coordination of care.
== END 2019-11-23 11:14 | disposition home or self-care (01) ==
LOC: SC 11:13
PROVIDERS: ATTEND Nurse Practitioner Family
DX: G47.33 Obstructive sleep apnea (adult) (pediatric) (principal)
CPT/HCPCS: 99214; G0463; 99212

== ENCOUNTER 2020-02-01 19:32 | Outpatient (CLI) | payer MEDICARE, OTHER | END 2020-02-01 23:59 | disposition critical access hospital (66) | LOC: EMS 19:32 | PROVIDERS: ATTEND Surgery | DX: R42 Dizziness and giddiness (principal) | CPT/HCPCS: A0425; A0429 ==

== ENCOUNTER 2020-02-01 19:39 | Emergency (ER) | payer MEDICARE, OTHER ==
--- NOTE | 2020-02-01 20:14 | ED Physician Documentation ---
History of Present Illness - Stated complaint Stated Complaint: DIZZY, HZ OF HEART TRANSPLANT - Chief complaint Chief Complaint: Cardiac - History obtained from History obtained from: Patient (the patient is a 79 y/o m with a hx of heart transplant who presents with a cc of abnormal heart beat, the patient reports he has a monitor and he sent a picture of his ekg to his measurement coordinator in [place] who told him to come to the ed for a pacemaker to be placed. patient reports he feels fine now. he denies cp, syncope, fevers, edema or hemoptysis. The patient reports earlier tonight he did feel lightheaded, palpitations and associated shortness of breath that has improved. denies etoh or illicit drug use. patient reports his cardiac ep is dr. mara salinas and his measurement coordinator is dr hebert vigil at .) Review of Systems Ten Systems: 10 systems reviewed and negative Constitutional: reports: Reviewed and negative Eyes: reports: Reviewed and negative Ears: reports: Reviewed and negative Nose: reports: Reviewed and negative Throat: reports: Reviewed and negative Cardiac: reports: Palpitations Respiratory: reports: Reviewed and negative GI: reports: Reviewed and negative : reports: Reviewed and negative Skin: reports: Reviewed and negative Musculoskeletal: reports: Reviewed and negative Neurologic: reports: Reviewed and negative Psychiatric: reports: Reviewed and negative Endocrine: reports: Reviewed and negative Immunocompromised: reports: Reviewed and negative PD PAST MEDICAL HISTORY - Past Medical History Past Medical History: Yes Cardiovascular: Hypertension, NC, Other Respiratory: None Neuro: None Endocrine/Autoimmune: None GI: None : None HEENT: None Psych: None Musculoskeletal: None Derm: None - Past Surgical History Past Surgical History: Yes General: Cholecystectomy Cardiovascular: Other - Present Medications Home Medications: Ambulatory Orders Medication Instructions Recorded Confirmed Aspirin [Aspir 81] 81 mg PO DAILY 04/19/13 10/11/17 Calcium Citrate/Vitamin D3 1 each PO DAILY 04/19/13 10/11/17 [Calcium Citrate - Vit D Caplet] Pravastatin Sodium [Pravachol] 20 mg PO DAILY 04/19/13 10/11/17 Sildenafil Citrate [Viagra] 12.5 mg PO DAILY PRN 04/19/13 10/11/17 Acetaminophen 500 mg PO PRN PRN 10/11/17 10/11/17 Losartan Potassium 25 mg PO DAILY 10/11/17 10/11/17 mycophenolate mofetiL 500 mg PO BID 10/11/17 10/11/17 [Mycophenolate Mofetil] allopurinoL [Allopurinol] 100 mg PO DAILY 12/09/18 12/09/18 Folic Acid/Vit B Complex and C 1 tab DAILY 10/06/19 10/06/19 [Klaudia-Aruna Tablet] - Allergies Allergies/Adverse Reactions: Allergies Allergy/AdvReac Type Severity Reaction Status Date / Time droperidol [Droperidol] Allergy Severe Hallucinati Verified 02/01/20 19:45 ons codeine phosphate * Allergy Mild Rash Verified 02/01/20 19:45 [From Tylenol-Codeine #3] acetaminophen Allergy Unknown UNKNOWN Verified 02/01/20 19:45 [From Tylenol-Codeine #3] avocado [Avocado] Allergy Hives Verified 02/01/20 19:45 - Social History Does the pt smoke?: No Smoking Status: Never smoker Does the pt drink ETOH?: No Does the pt have substance abuse?: No - Immunizations Immunizations are current?: Yes - POLST Patient has POLST: No PD ED PE NORMAL - Vitals Vital signs reviewed: Yes - General General: Alert and oriented X 3, No acute distress, Well developed/nourished - HEENT HEENT: Atraumatic, PERRL - Neck Neck: Supple, no meningeal sign - Cardiac Cardiac: RRR, No murmur, Strong equal pulses - Respiratory Respiratory: No respiratory distress, Clear bilaterally - Abdomen Abdomen: Normal bowel sounds, Soft, Non tender, Non distended, No organomegaly - Derm Derm: Normal color, Warm and dry, No rash - Extremities Extremities: No deformity, Normal ROM s pain, No edema - Neuro Neuro: Alert and oriented X 3, can slider 2-12 intact, No motor deficit, No sensory deficit, Normal speech - Psych Psych: Normal mood, Normal affect Results - Vitals Vitals: Vital Signs - 24 hr 02/01/20 02/01/20 02/01/20 19:46 19:49 20:51 Temperature 36.9 C Heart Rate 89 78 92 Respiratory 18 16 16 Rate Blood Pressure 135/77 H 135/77 H 150/78 H O2 Saturation 99 99 98 02/01/20 02/01/20 21:50 23:30 Temperature Heart Rate 89 94 Respiratory 16 18 Rate Blood Pressure 130/72 145/79 H O2 Saturation 99 98 Oxygen O2 Source Room air - EKG (time done) 19:44 Rate: Other (no stemi) 21:58 Rate: Other (no stemi) - Labs Labs: Laboratory Tests 02/01/20 02/01/20 02/01/20 19:50 19:50 19:50 WBC 3.8 L RBC 4.01 L Hgb 12.1 L Hct 38.2 L MCV 95.3 H MCH 30.2 MCHC 31.7 L RDW 14.0 Plt Count 146 MPV 10.6 Neut # (Auto) 2.8 Lymph # (Auto) 0.7 L Barnes # (Auto) 0.3 Eos # (Auto) 0.0 Baso # (Auto) 0.0 Absolute Nucleated RBC 0.00 Nucleated RBC % 0.0 PT 11.7 INR 1.0 APTT 28.1 Sodium 134 L Potassium 4.6 Chloride 104 Carbon Dioxide 21 Anion Gap 9.0 BUN 78 H Creatinine 2.8 H Estimated GFR (MDRD) 22 L Glucose 134 H Calcium 8.8 Phosphorus 3.9 Magnesium 2.4 Total Bilirubin 0.8 AST 32 ALT 27 Alkaline Phosphatase 55 Total Creatine Kinase 68 Troponin I High Sens B-Natriuretic Peptide Total Protein 6.6 L Albumin 4.1 Globulin 2.5 Albumin/Globulin Ratio 1.6 Lipase 39 02/01/20 02/01/20 02/01/20 19:50 19:50 21:54 WBC RBC Hgb Hct MCV MCH MCHC RDW Plt Count MPV Neut # (Auto) Lymph # (Auto) Barnes # (Auto) Eos # (Auto) Baso # (Auto) Absolute Nucleated RBC Nucleated RBC % PT INR APTT Sodium Potassium Chloride Carbon Dioxide Anion Gap BUN Creatinine Estimated GFR (MDRD) Glucose Calcium Phosphorus Magnesium Total Bilirubin AST ALT Alkaline Phosphatase Total Creatine Kinase Troponin I High Sens 8.7 8.6 B-Natriuretic Peptide 177 H Total Protein Albumin Globulin Albumin/Globulin Ratio Lipase PD MEDICAL DECISION MAKING - ED course Complexity details: reviewed old records, reviewed results, re-evaluated patient, considered differential, d/w patient, d/w bus info consultant - Consults Consults: Consulted (name) (dr. salinas cardiac ep at at [phone]. images sent. he would like patient to be transferred to for higher level of care and possible pace maker placement. ), Discussed case with (dr. salinas), Request bus info consultant accept pt in transfer (dr. salinas request patient to be transferred to to his service.) - Critical Care Time(min): 30 Time Includes: Direct patient care, Review records, Reassess patient, Document care, Coordinate care, Medical consult Data interpretation: Labs, CXR, Prior EKG Procedures included in critical care time: Peripheral IV Procedures excluded from critical care time: EKG Departure - Departure Disposition: 02 Transfer Acute Care Hosp Clinical Impression: Arrhythmia Qualifiers: Arrhythmia type: unspecified cardiac arrhythmia Qualified Code(s): I49.9 - Cardiac arrhythmia, unspecified Condition: Stable
[2020-02-01 20:49] LABS: BASOPHILS % (AUTO) 0.5 %; EOSINOPHILS % (AUTO) 0.5 %; HGB - HEMOGLOBIN 12.1 g/dL (14.0-18.0); LYMPHOCYTES # (AUTO) 0.7 10^3/uL (1.5-3.5); LYMPHOCYTES % (AUTO) 18.3 %; MEAN CORPUSCULAR HEMOGLOBIN 30.2 pg (27.0-31.0); MEAN CORPUSCULAR HGB CONC 31.7 g/dL (32.0-36.0); MEAN CORPUSCULAR VOLUME 95.3 fL (80.0-94.0); MEAN PLATELET VOLUME 10.6 fL (7.4-11.4); MONOCYTES # (AUTO) 0.3 10^3/uL (0.0-1.0); MONOCYTES % (AUTO) 7.8 %; NEUTROPHILS # (AUTO) 2.8 10^3/uL (1.5-6.6); NEUTROPHILS % (AUTO) 72.1 %; PLT - PLATELET COUNT 146 10^3/uL (130-450); RED BLOOD COUNT 4.01 10^6/uL (4.70-6.10); WHITE BLOOD COUNT 3.8 x10^3/uL (4.8-10.8)
[2020-02-01 20:55] LABS: PT - PROTHROMBIN TIME 11.7 secs (9.9-12.6)
[2020-02-01 21:02] LABS: ALBUMIN 4.1 g/dL (3.2-5.5); ALBUMIN/GLOBULIN RATIO 1.6 (1.0-2.2); BILIRUBIN,TOTAL 0.8 mg/dL (0.2-1.0); CALCIUM 8.8 mg/dL (8.5-10.3); CREATININE 2.8 mg/dL (0.6-1.2); MAGNESIUM 2.4 mg/dL (1.7-2.8); PARTIAL THROMBOPLASTIN TIME 28.1 secs (24.9-33.3); PHOSPHORUS 3.9 mg/dL (2.5-4.6); TOTAL PROTEIN 6.6 g/dL (6.7-8.2)
--- NOTE | 2020-02-01 21:46 | XRAY Report ---
Reason: sob Procedure Date: 02/01/2020 Accession Number: [id number] / [id number] Procedure: XR - Chest 1 View X-Ray CPT Code: 32920 Final Report FULL RESULT: EXAM: CHEST RADIOGRAPHY EXAM DATE: 02/01/2020 08:53 PM. CLINICAL HISTORY: Sob. COMPARISON: CHEST 2 VIEW PA/LAT 10/11/2017 5:25 PM. TECHNIQUE: 1 view. FINDINGS: Lungs/Pleura: The lungs remain clear. There are no evolving infiltrates nor pleural effusions. There are no pneumothoraces. Mediastinum: The heart is slightly prominent yet still within normal limits. Other: None. IMPRESSION: No evolving infiltrates. RADIA
[2020-02-01 23:30] VITALS: BP 145/79
== END 2020-02-02 00:15 | disposition short-term general hospital (02) ==
LOC: EDUNIT# → ED 19:39
DX: I49.9 Cardiac arrhythmia, unspecified (principal); I10 Essential (primary) hypertension; Z94.1 Heart transplant status
CPT/HCPCS: 36415; 71045; 80053; 82550; 83690; 83735; 83880; 84100; 84484; 85025; 85610; 85730; 93005; 99285; 99291

== ENCOUNTER 2020-02-02 00:20 | Outpatient (CLI) | payer MEDICARE, OTHER | END 2020-02-02 00:21 | disposition short-term general hospital (02) | LOC: EMS 00:20 | PROVIDERS: ATTEND Surgery | DX: R00.1 Bradycardia, unspecified (principal); I45.9 Conduction disorder, unspecified | CPT/HCPCS: A0425; A0426 ==

== ENCOUNTER 2020-02-08 14:47 | Outpatient (CLI) | payer MEDICARE, OTHER ==
[2020-02-08 15:32] LABS: THYROID STIMULATING HORMONE 5.13 uIU/mL (0.34-5.60)
[2020-02-08 15:33] LABS: FREE T3 2.75 pg/mL (2.5-3.9)
[2020-02-08 15:34] LABS: FREE T4 (FREE THYROXINE) 0.81 ng/dL (0.58-1.64)
== END 2020-02-08 14:48 | disposition home or self-care (01) ==
LOC: LAB 14:47
PROVIDERS: ATTEND Nurse Practitioner
DX: R53.83 Other fatigue (principal)
CPT/HCPCS: 36415; 84439; 84443; 84481

== ENCOUNTER 2020-05-08 07:54 | Outpatient (CLI) | payer MEDICARE, OTHER ==
[2020-05-08 08:29] LABS: CALCIUM 8.8 mg/dL (8.5-10.3); CREATININE 2.9 mg/dL (0.6-1.2)
== END 2020-05-08 07:55 | disposition home or self-care (01) ==
LOC: LAB 07:54
PROVIDERS: ATTEND Internal Medicine Cardiovascular Disease
DX: Z94.1 Heart transplant status (principal)
CPT/HCPCS: 36415; 80048; 80158; 81599

== ENCOUNTER 2020-08-31 07:58 | Outpatient (CLI) | payer MEDICARE, OTHER ==
[2020-08-31 08:25] LABS: CREATININE 3.1 mg/dL (0.6-1.2)
== END 2020-08-31 07:59 | disposition home or self-care (01) ==
LOC: LAB 07:58
PROVIDERS: ATTEND Internal Medicine Cardiovascular Disease
DX: I15.9 Secondary hypertension, unspecified (principal); Z94.1 Heart transplant status
CPT/HCPCS: 36415; 80048

== ENCOUNTER 2020-10-11 08:03 | Outpatient (CLI) | payer MEDICARE, OTHER ==
[2020-10-11 08:33] LABS: CREATININE 3.3 mg/dL (0.6-1.2)
== END 2020-10-11 08:04 | disposition home or self-care (01) ==
LOC: LAB 08:03
PROVIDERS: ATTEND Internal Medicine Cardiovascular Disease
DX: Z94.1 Heart transplant status (principal)
CPT/HCPCS: 36415; 80048; 80158; 81599

== ENCOUNTER 2020-11-15 12:33 | Outpatient (CLI) | payer MEDICARE, OTHER ==
--- NOTE | 2020-11-15 10:32 | SLEEP CARE CONSULTATION ---
Information from patient questionnaire entered by Elisha Garvin. I have reviewed and concur with the information entered by Elisha Garvin. This document represents the service I personally performed and the decisions made by me, Penny Fonseca, RN, MSN, POWDER MILL OPERATOR. History of Present Illness Service Date and Time: 11/15/2020 1000 Previous diagnosis: Severe, Obstructive Sleep Apnea-Hypopnea Syndrome AHI: 33.2 (in 2017)(6.3 in 2013) Reason for follow up: annual (last seen 10/2019) Equipment type: CPAP Equipment obtained from: [employer] (getting supplies as neede) Mask style: Full face (Dreamwear) Backup mask available: Yes (old mask ) Last cushion change: a month ago Prior sleep studies: Yes Year and Where: 2012 and 2016 - [facility] Type of Sleep Study: Polysomnography HPI additional information: Last visit note reviewed. Hospitalized for lightheadedness and arrhythmia prior to visit and evaluated. He had obtained [employer] watch and obtained a [place] CHANTEL on his phone. Since last visit he was faint again and able to catch the arrhythmia causing symptoms on his phone chantel and have it evaluated by his sas sql developer. It was determined he had a heart block causing bradycardia and a pacemaker was plac ed in January 2020. Symptoms have since been resolved. The CPAP pressure was increased to 9cmH20 for air hunger. CPAP Compliance Data - Data Reviewed with Patient Average duration of nightly device use: 7 hr 15 min Compliance rate %: 100 Current pressure setting (cmH2O): 9 Humidity settin Heated hose settin Average residual AHI: 1.6 Average large leak: 8 min 54 sec Subjective Patient concerns: reports: dry mouth, nose, throat (dry mouth and throat - severe most mornings). denies: aerophagia (discussed reason for symptoms and to call office with rationale), mask discomfort, air blowing in eyes, mask leak noise, condensation in mask/hose, nasal congestion, epistaxis Observed to snore while using device: Yes ( slight when supine awakening spouse ) Current pressure setting perceived as: comfortable On therapy, patient: reports: sleeping better, awakening more refreshed, being more awake and alert during the day, more rested overall. denies: drowsiness while driving Initial [place] Sleepiness Scale score: 5 (in 2012) Current [place] Sleepiness Scale score: 6 Allergies and Home Medications Known drug allergies: Yes Home medication list reviewed: Yes (added amlodipine 2.5mg and split losartan to 25mg bid ) Review of Systems Review of systems same as previous: No (see HPI - pacemaker ) Physical Exam Height: 6 ft 2 in Weight: 164 lb (home weight- stable) Body Mass Index: 21.0 BMI Classification: Healthy weight Impression and Plan 1. Obstructive Sleep Apnea-Hypopnea Syndrome, severe, with excellent treatment compliance and good apnea control. On CPAP therapy, the patient has better sleep quality and is more rested overall. To resolve supine snore, the CPAP pressure will be changed to 9-10 cmH20. Patient advised to contact this office if p ressure change uncomfortable or if pressure change does not resolve snore. Oral dryness can be reduced by adjusting humidity setting higher or heated hose lower or by adjusting both settings. Rationale explained why to change. Patient advised that chronic oral dryness can affect dental health and advised to follow up with dentist which he has. Patient has been using Act dry mouth with no benefit. There are other products such as Biotene products, Dry mouth rinse and Xylomelts. Patient advised to discuss best option with dentist. Because patient has significant apnea in all positions of sleep, if unable to use CPAP due to illness of lack of electricity, patient advised to raise head of bed 30-40 degrees to decrease some apnea risk. Patient's apnea severity and rationale for treatment to reduce apnea, improve sleep quality and reduce cardiovascular and cerebrovascular events was reviewed. I also reviewed the benefit of consistent device use of CPAP for hypertension. * Change auto CPAP pressure to 9-10 cmH2O * Notify me if snoring with mask or feeling that the pressure is too much or too little * Follow up with dentist re oral dryness products * Avoid supine sleep if unable to use CPAP * Call this office if any problems using CPAP * Return for follow up in 1 year , or sooner if concerns arise Counseling Topics: Sleeping position Visit Type: Telehealth Video Video Type: Jonn Patient Location: Home Location of Provider: Home Patient agrees and consents to this telehealth visit type: Yes Patient agrees to have their insurance billed: Yes Time Spent with Patient (minutes): 30 plus 7 minutes after visit to finish documentation and prescription Provider Statement: I spent 100% of the Telehealth Video Call with the patient with greater than 50% spent counseling the patient and coordination of care.
== END 2020-11-15 12:34 | disposition home or self-care (01) ==
LOC: SC 12:33
PROVIDERS: ATTEND Nurse Practitioner Family
DX: G47.33 Obstructive sleep apnea (adult) (pediatric) (principal)

== ENCOUNTER 2021-01-15 08:03 | Outpatient (CLI) | payer MEDICARE, OTHER ==
[2021-01-15 08:35] LABS: ALBUMIN 3.9 g/dL (3.2-5.5); ALBUMIN/GLOBULIN RATIO 1.8 (1.0-2.2); BILIRUBIN,TOTAL 0.4 mg/dL (0.2-1.0); CALCIUM 8.8 mg/dL (8.5-10.3); CREATININE 3.1 mg/dL (0.6-1.2); POTASSIUM 4.3 mmol/L (3.5-5.0); TOTAL PROTEIN 6.1 g/dL (6.7-8.2)
[2021-01-15 08:50] LABS: THYROID STIMULATING HORMONE 7.56 uIU/mL (0.34-5.60)
[2021-01-15 09:50] LABS: FREE T4 (FREE THYROXINE) 0.84 ng/dL (0.58-1.64)
== END 2021-01-15 08:04 | disposition home or self-care (01) ==
LOC: LAB 08:03
PROVIDERS: ATTEND Internal Medicine Cardiovascular Disease
DX: Z94.1 Heart transplant status (principal)
CPT/HCPCS: 36415; 80053; 80158; 81599; 84439; 84443; 84480

== ENCOUNTER 2021-05-02 11:41 | Outpatient (CLI) | payer MEDICARE, OTHER | END 2021-05-02 11:42 | disposition home or self-care (01) | LOC: LAB 11:41 | DX: N18.6 End stage renal disease (principal) | CPT/HCPCS: 36415 ==

== ENCOUNTER 2021-06-07 09:37 | Outpatient (CLI) | payer SELFPAY | END 2021-06-07 09:38 | disposition home or self-care (01) | LOC: LAB 09:37 | DX: N18.6 End stage renal disease (principal) | CPT/HCPCS: 36415 ==

== ENCOUNTER 2021-06-26 16:22 | Outpatient (CLI) | payer MEDICARE, OTHER ==
--- NOTE | 2021-07-02 08:42 | XRAY Report ---
PROCEDURE: Lumbar Spine Complete INDICATIONS: DEGENERATION,SCOLIOSIS TECHNIQUE: 5 views of the lumbar spine were acquired. COMPARISON: None. FINDINGS: Bones: 5 [id number] vertebrae are present. There is rightward scoliotic curvature with apex at L2-3. There is grade 1 retrolisthesis, 3 mm of L2 on L3, L3 on L4. Multilevel moderate to severe dis c space narrowing is present throughout the lumbar spine. Multilevel severe foraminal narrowing is al so present most notable at L5-S1 1. No vertebral body compression fractures. No suspicious bony lesi ons. Multilevel anterior osteophytes are present. Soft tissues: Overlying bowel gas pattern is normal. No suspicious soft tissue calcifications. IMPRESSION: Rightward scoliotic curvature with multilevel disc and foraminal narrowing as above. Reviewed by: Chantel Draper MD on 06/27/2021 10:15 AM PDT Approved by: Chantel Draper MD on 06/27/2021 10:15 AM PDT Station ID: [id number]
== END 2021-06-26 16:23 | disposition home or self-care (01) ==
LOC: DI 16:22
PROVIDERS: ATTEND Family Medicine
DX: M41.86 Other forms of scoliosis, lumbar region (principal); M43.16 Spondylolisthesis, lumbar region; M48.061 Spinal stenosis, lumbar region without neurogenic claudication; M48.07 Spinal stenosis, lumbosacral region

== ENCOUNTER 2021-07-10 14:16 | Outpatient (CLI) | payer MEDICARE, OTHER | END 2021-07-10 14:17 | disposition home or self-care (01) | LOC: LAB 14:16 | DX: N18.6 End stage renal disease (principal); Z53.9 Procedure and treatment not carried out, unspecified reason | CPT/HCPCS: 36415 ==

== ENCOUNTER 2021-07-11 07:48 | Outpatient (CLI) | payer MEDICARE, OTHER ==
[2021-07-11 09:03] LABS: CALCIUM 9.1 mg/dL (8.5-10.3); POTASSIUM 4.9 mmol/L (3.5-5.0)
== END 2021-07-11 07:49 | disposition home or self-care (01) ==
LOC: LAB 07:48
PROVIDERS: ATTEND Internal Medicine Cardiovascular Disease
DX: Z94.1 Heart transplant status (principal)
CPT/HCPCS: 36415; 80048; 80158; 81599

== ENCOUNTER 2021-10-21 07:35 | Outpatient (CLI) | payer MEDICARE, OTHER ==
[2021-10-21 08:13] LABS: BASOPHILS % (AUTO) 0.3 %; EOSINOPHILS # (AUTO) 0.1 10^3/uL (0.0-0.7); EOSINOPHILS % (AUTO) 1.5 %; HCT - HEMATOCRIT 34.3 % (42.0-52.0); LYMPHOCYTES # (AUTO) 1.2 10^3/uL (1.5-3.5); LYMPHOCYTES % (AUTO) 35.9 %; MEAN CORPUSCULAR HEMOGLOBIN 30.7 pg (27.0-31.0); MEAN CORPUSCULAR HGB CONC 32.1 g/dL (32.0-36.0); MEAN CORPUSCULAR VOLUME 95.8 fL (80.0-94.0); MEAN PLATELET VOLUME 9.8 fL (7.4-11.4); MONOCYTES # (AUTO) 0.4 10^3/uL (0.0-1.0); MONOCYTES % (AUTO) 12.2 %; NEUTROPHILS # (AUTO) 1.6 10^3/uL (1.5-6.6); NEUTROPHILS % (AUTO) 49.8 %; PLT - PLATELET COUNT 147 10^3/uL (130-450); RED BLOOD COUNT 3.58 10^6/uL (4.70-6.10); RED CELL DISTRIBUTION WIDTH 13.5 % (12.0-15.0); WHITE BLOOD COUNT 3.3 x10^3/uL (4.8-10.8)
[2021-10-21 08:39] LABS: ALBUMIN/GLOBULIN RATIO 1.7 (1.0-2.2); BILIRUBIN,TOTAL 0.7 mg/dL (0.2-1.0); CALCIUM 9.4 mg/dL (8.5-10.3); CREATININE 3.4 mg/dL (0.6-1.2); MAGNESIUM 2.5 mg/dL (1.7-2.8); POTASSIUM 4.3 mmol/L (3.5-5.0); TOTAL PROTEIN 6.4 g/dL (6.7-8.2)
== END 2021-10-21 07:36 | disposition home or self-care (01) ==
LOC: LAB 07:35
PROVIDERS: ATTEND Internal Medicine Cardiovascular Disease
DX: Z94.1 Heart transplant status (principal)
CPT/HCPCS: 36415; 80053; 80158; 81599; 83735; 85025

== ENCOUNTER 2021-11-06 08:58 | Outpatient (CLI) | payer MEDICARE, OTHER ==
[2021-11-06 09:26] VITALS: BP 138/67
--- NOTE | 2021-11-06 09:26 | SLEEP CARE CONSULTATION ---
Information from patient questionnaire entered by Holli Andersen MA. I have reviewed and concur with the information entered by Holli Andersen MA. This document represents the service I personally performed and the decisions made by , Sherie Pardo ARNP. History of Present Illness Service Date and Time: 11/06/2021 0858 Previous diagnosis: Severe, Obstructive Sleep Apnea-Hypopnea Syndrome AHI: 33.2 (in 2017)(6.3 in 2012) Reason for follow up: annual (LAST SEEN 10/2020) Equipment type: CPAP Equipment obtained from: [employer] (getting supplies as neede) Mask style: Full face (Dreamwear) Mask brand: Respironics (Dreamwear) Backup mask available: Yes (old mask) Last cushion change: 2 weeks Prior sleep studies: Yes Year and Where: 2012 and 2016 - [facility] Type of Sleep Study: Polysomnography HPI additional information: CRISTIN MARQUES was diagnosed to have severe, AHI 33.2, obstructive sleep apnea- hypopnea syndrome and returned today for CPAP therapy annual follow-up. Sleep Study - Results Type of Sleep Study: Polysomnography Prior sleep studies: Yes Year and Where: 2012 and 2016 - [facility] CPAP Compliance Data - Data Reviewed with Patient Average duration of nightly device use: 7 HOURS 23 MINUTES Compliance rate %: 97.2 Current pressure setting (cmH2O): 10 Humidity settin Heated hose settin Average residual AHI: 1.2 Average large leak: 28 MINUTES 36 SECONDS Subjective Patient concerns: reports: dry mouth, nose, throat (occasional, if mouth comes open when asleep). denies: aerophagia, mask discomfort, air blowing in eyes, mask leak noise, condensation in mask/hose, nasal congestion, epistaxis, other Observed to snore while using device: No Current pressure setting perceived as: comfortable On therapy, patient: reports: sleeping better, awakening more refreshed, being more awake and alert during the day, more rested overall. denies: drowsiness while driving Initial [place] Sleepiness Scale score: 5 (in 2012) Current [place] Sleepiness Scale score: 4 (2021) Allergies and Home Medications Known drug allergies: Yes (TYLENOL W COD) Drug allergies reviewed: Yes Home medication list reviewed: Yes (no changes) Review of Systems Review of systems same as previous: No (ESRD, on transplant list last 6 months) Physical Exam Vital signs obtained and entered by: STACIE MARES Blood Pressure: 138/67 (RIGHT) Cuff size: wrist Heart Rate: 67 O2 Saturation: 97 (N95 MASK) Height: 6 ft 2 in Weight: 162 lb (W/O CLOTHES) Body Mass Index: 20.7 BMI Classification: Healthy weight Impression and Plan 1. Obstructive Sleep Apnea-Hypopnea Syndrome, severe, with good treatment compliance and good apnea control. On CPAP therapy, the patient has better sleep quality and is more rested overall. Patient has a Dreamstation. Patient has already registered their device for the recall. Patient denies any black particles seen in machine or hoses, any unusual odors coming from device. Patient has not experienced any physical symptoms such as upper airway irritation, headache, skin or eye irritation, asthma, nausea/vomiting, difficul ty breathing or chest pain. If patient is not able to sleep due to waking up choking, gasping for air or other respiratory distress that they may decide to continue using it until it is either replaced or repaired. Patient is going to continue use and monitor for debris in his device. Patient voiced understanding and agreement with plan. Patient's apnea severity and rationale for treatment to reduce apnea, improve sleep quality and reduce cardiovascular and cerebrovascular events was reviewed. I also reviewed the benefit of consistent device use of CPAP for hypertension and arrhythmia. Patient is at a healthy weight and was encouraged to maintain this. He had a heart transplant 22 years ago and has been on immunosuppressant drugs. This appears to have damaged his kidneys and he is not in ESRD and on the transplant list for last 6 months. He is not currently on dialysis. * Continue CPAP pressure at 10 cmH2O * Notify me if snoring with mask or feeling that the pressure is too much or too little * Maintain a healthy weight * Call this office if any problems using CPAP * Return for follow up in 1 year, or sooner if concerns arise Counseling Topics: Spare mask, Weight control Visit Type: In Office Time Spent with Patient (minutes): 20 Provider Statement: I spent 100% of the Face to Face Visit with the patient with greater than 50% spent counseling the patient and coordination of care.
== END 2021-11-06 08:59 | disposition home or self-care (01) ==
LOC: SC 08:58
PROVIDERS: ATTEND Nurse Practitioner Family
DX: G47.33 Obstructive sleep apnea (adult) (pediatric) (principal)
CPT/HCPCS: 99213; G0463; 99212

== ENCOUNTER 2022-04-07 16:04 | Outpatient (CLI) | payer MEDICARE, OTHER ==
--- NOTE | 2022-04-07 16:50 | XRAY Report ---
PROCEDURE: Knee 3 View RT INDICATIONS: KNEE EFFUSION,RIGHT TECHNIQUE: 4 views of the right knee(s) were acquired. COMPARISON: None. FINDINGS: Bones: No fractures or dislocations. There is severe right medial femorotibial compartment narrowin g and small medial compartment and patellofemoral osteophytes. No suspicious bony lesions. Soft tissues: There is a moderate-sized joint effusion. There are extensive soft tissue vascular calc ifications. IMPRESSION: Moderate knee joint effusion and mild degenerative change. Arterial atherosclerosis. Reviewed by: Mary Vidales MD on 04/07/2022 4:49 PM PDT Approved by: Mary Vidales MD on 04/07/2022 4:49 PM PDT Station ID: [id number]
== END 2022-04-07 16:05 | disposition home or self-care (01) ==
LOC: DI 16:04
PROVIDERS: ATTEND Family Medicine
DX: M17.11 Unilateral primary osteoarthritis, right knee (principal); M25.461 Effusion, right knee; I70.201 Unspecified atherosclerosis of native arteries of extremities, right leg

== ENCOUNTER 2022-12-05 10:26 | Outpatient (CLI) | payer MEDICARE, OTHER ==
[2022-12-05 10:58] VITALS: BP 110/50
--- NOTE | 2022-12-05 10:58 | SLEEP CARE CONSULTATION ---
Information from patient questionnaire entered by Ayesha Bansal. I have reviewed and concur with the information entered by Ayesha Bansal. This document represents the service I personally performed and the decisions made by me, Sherie Pardo ARNP. History of Present Illness Service Date and Time: 12/05/2022 1026 Previous diagnosis: Severe, Obstructive Sleep Apnea-Hypopnea Syndrome AHI: 33.2 (in 2017)(6.3 in 2012) Reason for follow up: annual (LAST SEEN 10/2021) Equipment type: CPAP ([employer] Dreamstation 2, s/u 10/2019) Equipment obtained from: [employer] (getting supplies as neede) Mask style: Full face Mask brand: Respironics Backup mask available: Yes (old mask) Last cushion change: 3-4 weeks ago [facility] HPI additional information: CRISTIN MARQUES was diagnosed to have severe, AHI 33.2, obstructive sleep apnea- hypopnea syndrome and returned today for CPAP therapy annual follow-up. Sleep Study - Results Type of Sleep Study: Polysomnography Prior sleep studies: Yes [facility] CP[facility] Compliance Data - Data Reviewed with Patient Average duration of nightly device use: 7 HRS 22 MIN 5SEC Compliance rate %: 99.4 (179/180 days used) Current pressure setting (cmH2O): 10 Average residual AHI: 0.9 Central apnea: 0.1 Obstructive apnea: 0.1 Average large leak: 3 mins 16 secs Subjective Missed days of use due to: reports: other Patient concerns: denies: aerophagia, mask discomfort, air blowing in eyes, mask leak noise, condensation in mask/hose, nasal congestion, dry mouth, nose, throat, epistaxis Observed to snore while using device: No Current pressure setting perceived as: comfortable On therapy, patient: reports: sleeping better, awakening more refreshed, being more awake and alert during the day, more rested overall. denies: drowsiness while driving Initial [place] Sleepiness Scale score: 5 (in 2012) Current [place] Sleepiness Scale score: 6 (12/05/22) Allergies and Home Medications Drug allergies reviewed: Yes (see list in EMR) Home medication list reviewed: Yes (no changes) Review of Systems Review of systems same as previous: No (Ablation for Afib in Jul 2022) Physical Exam Vital signs obtained and entered by: AYESHA Stewart MA Blood Pressure: 110/50 (LEFT ARM) Cuff size: regular Heart Rate: 81 O2 Saturation: 98 Height: 6 ft 2 in Weight: 164 lb 9.6 oz Body Mass Index: 21.1 BMI Classification: Normal Impression and Plan 1. Obstructive Sleep Apnea-Hypopnea Syndrome, severe, with good treatment compliance and good apnea control. On CPAP therapy, the patient has better sleep quality and is more rested overall. He states he was using a [employer] Dreamwear full face mask but because of his pacemaker his DME ([employer]) sent him a replacement. He does not like the mask as well but is comfortable with it. He thinks it is an older version of the Dreamwear mask but did not know its type. Patient has significant improvement of their sleep apnea and are satisfied with current CPAP therapy. Patient denies problems with oral dryness, nasal congestion, epistaxis, skin irritation or aerophagia. Patient's apnea severity and rationale for treatment to reduce apnea, improve sleep quality and reduce cardiovascular and cerebrovascular events was reviewed. I also reviewed the benefit of consistent device use of CPAP for hypertension and arrhythmia. * Continue CPAP pressure at 10 cmH2O * Update supplies * Notify me if snoring with mask or feeling that the pressure is too much or too little * Call this office if any problems using CPAP * Return for follow up in 1 year, or sooner if concerns arise Counseling Topics: Spare mask Visit Type: In Office Time Spent with Patient (minutes): 20 Provider Statement: I spent 100% of the Face to Face Visit with the patient with greater than 50% spent counseling the patient and coordination of care.
== END 2022-12-05 10:27 | disposition home or self-care (01) ==
LOC: SC 10:26
PROVIDERS: ATTEND Nurse Practitioner Family
DX: G47.33 Obstructive sleep apnea (adult) (pediatric) (principal)
CPT/HCPCS: 99213; G0463; 99212

== ENCOUNTER 2023-10-16 16:42 | Emergency (ER) | payer MEDICARE, OTHER ==
[2023-10-16] MEDS ORDERED: TETANUS/DIPHTHERIA/PERTUSSIS 0.5 ML SYRINGE IM ONE (17:01)
[2023-10-16] MEDS ORDERED: BUFFERED LIDOCAINE 10 ML SYRINGE SUBQ STA (17:01)
--- NOTE | 2023-10-16 17:06 | ED Physician Documentation ---
PD HPI UPPER EXT INJURY - Stated complaint Stated Complaint: RT THUMB LAC - Chief complaint Chief Complaint: Trauma Ext - History obtained from History obtained from: Patient - Additonal information Additional information: Patient is an 83-year-old male presenting for evaluation of injury to his right thumb. Patient was working with a cordwood cutter and accidentally cut his finger. He has a large open wound to the right thumb. He does not take a blood thinner. He does take aspirin. He is unsure of his last tetanus. His history is significant for being a heart transplant recipient. Review of Systems Skin: reports: Laceration (s) PD PAST MEDICAL HISTORY - Past Medical History Cardiovascular: Hypertension, PA, Other Respiratory: None Neuro: None Endocrine/Autoimmune: None GI: None : None HEENT: None Psych: None Musculoskeletal: None Derm: None - Past Surgical History Past Surgical History: Yes General: Cholecystectomy Cardiovascular: Other - Present Medications Home Medications: Ambulatory Orders Medication Instructions Recorded Confirmed Aspirin [Aspir 81] 81 mg PO DAILY 04/19/13 12/05/22 Calcium Citrate/Vitamin D3 1 each PO DAILY 04/19/13 12/05/22 [Calcium Citrate - Vit D Caplet] Pravastatin Sodium [Pravachol] 20 mg PO DAILY 04/19/13 12/05/22 Sildenafil Citrate [Viagra] 12.5 mg PO DAILY PRN 04/19/13 12/05/22 Acetaminophen 500 mg PO PRN PRN 10/11/17 12/05/22 Losartan Potassium 25 mg PO DAILY 10/11/17 12/05/22 mycophenolate mofetiL [Cellcept] 500 mg PO BID 10/11/17 12/05/22 allopurinoL [Allopurinol] 100 mg PO DAILY 12/09/18 12/05/22 Folic Acid/Vit B Complex and C 1 tab DAILY 10/06/19 12/05/22 [Klaudia-Aruna Tablet] Oxycodone HCl/Acetaminophen 1 each PO Q6H PRN #10 tablet 10/16/23 [Percocet 5-325 mg Tablet] cephALEXin [Keflex] 500 mg PO BID #10 cap 10/16/23 - Allergies Allergies/Adverse Reactions: Allergies Allergy/AdvReac Type Severity Reaction Status Date / Time droperidol [Droperidol] Allergy Severe Hallucinati Verified 12/05/22 10:42 ons codeine phosphate * Allergy Mild Rash Verified 12/05/22 10:42 [From Tylenol-Codeine #3] acetaminophen Allergy Unknown UNKNOWN Verified 12/05/22 10:42 [From Tylenol-Codeine #3] avocado [Avocado] Allergy Hives Verified 12/05/22 10:42 - Social History Does the pt smoke?: No Smoking Status: Never smoker Does the pt drink ETOH?: No Does the pt have substance abuse?: No - Immunizations Immunizations are current?: Yes - POLST Patient has POLST: No PD ED PE NORMAL - General General: Alert and oriented X 3, No acute distress, Well developed/nourished - HEENT HEENT: Atraumatic - Cardiac Cardiac: Strong equal pulses - Respiratory Respiratory: No respiratory distress - Extremities Extremities: Other (Complex laceration through the distal nail plate and into the soft tissue of the right thumb; Fingertip is affixed on the volar aspect and coloring of the flap is normal without signs of duskiness has normal range of motion of thumb joint) Results - Vitals Vitals: Vital Signs - 24 hr 10/16/23 10/16/23 16:53 18:32 Temperature 36.7 C Heart Rate 81 69 Respiratory 16 18 Rate Blood Pressure 145/69 H 147/68 H O2 Saturation 100 99 Oxygen O2 Source Room air Procedures - Laceration (location) R thumb Length in cm: 2 Wound type: Stellate, Irregular, Clean Neurovascular status: Sensory intact, Motor intact, Vascular intact Tendon involvement: Tendon intact Anesthesia: Lidocaine 1% Wound preparation: Hibiclens, Irrigated copiously NS Skin layer closure: Size #-0 - enter number (5-0 Ethilon), Sutures - enter # (12) Other: Patient tolerated well, No complications, Neurovascular intact, Dressing applied, Tetanus booster given PD Medical Decision Making - ED course Complexity details: reviewed results, re-evaluated patient, d/w patient, d/w family ED course: Patient is an 83-year-old male with complex laceration and open fracture to the distal right thumb. An x-ray was obtained which shows a tuft fracture. The distal portion of the tip is still adhered on the volar aspect.His history is complicated by history of heart transplant 23 years ago. However he states that he usually heals well does not often get infections and has other skin tears to his hands which are well-healing. Discussed that I am not a hand surgeon and that we do not have orthopedic surgery coverage here at [facility] until next October 20. Discussed options for treatment including closure here today with need for close follow-up and possible need for revision versus transfer to facility with hand capabilities for more definitive treatment. He is comfortable with treatment here and does not want transfer at this time.The distal portion of the wound is not dusky And I was able to [facility] cover the defect with sutures. I will place him on cephalexin. He does have a history of chronic kidney disease so dose adjustments were made based on his most recent GFR. Patient and spouse are advised on the importance of very close orthopedic surgery follow-up and Information was given to him for the [facility] orthopedic clinic to call on Thursday. He is also aware to return to the emergency department if he is having trouble with getting follow- up or if he is having any worsening symptoms. Departure - Departure Disposition: Home, Self Care Clinical Impression: Open fracture of right thumb, Laceration of thumb with damage to nail Condition: Good Instructions: ED Fx Finger Open Follow-Up: [facility]opedic Care [Provider Group] (Call the next day they are open which is 10/20) Prescriptions: cephALEXin [Keflex] 500 mg PO BID #10 cap Oxycodone HCl/Acetaminophen [Percocet 5-325 mg Tablet] 1 each PO Q6H PRN #10 tablet PRN Reason: pain Comments: You were evaluated and treated for a complex laceration and open fracture to your right thumb. I did close the wound with 12 sutures. You will need very close follow-up with an orthopedic surgeon or hand specialist to see how this is healing. There is a chance that they may need to revise the wound depending on how it is doing. We have placed a splint and a dressing that I would recommend leaving on until you are seen for follow-up. I am also starting you on an antibiotic. I have sent your prescription to the [facility] pharmacy along with a small amount of narcotic pain medication. I have included the information for the [facility] orthopedic clinic that I would recommend calling on 10/20 as soon as they open up. I am prescribing a short course of narcotic pain medication for you. These are potentially dangerous and addictive medications that should be used carefully. These medications may constipate you. Take an dcrn-cuh-jpwqkot stool softener (d ocusate) twice daily with plenty of water while taking these medications. If you go 24 hours without a bowel movement, take gooa-xmw-khwjfqy miralax, per package instructions. Do not drink or drive while taking these medications. If you received narcotic or sedating medications while in the emergency department, do not drive for 24 hours. Store this medication in a safe, secure place and out of reach of children. It is a violation of federal law to give or sell this medication to another person or to use in a manner other than prescribed. The ED will not refill narcotic prescriptions, including prescriptions lost or stolen. To dispose of unwanted medications: 1. [facility] at [address] in [place] has a medication drop box. They accept prescription medications (in pill form) Thursday through Thursday 9:00 a.m. to 5:00 p.m. 2. The [facility] [employer] accepts prescription medications (in pill form only) for disposal year round. Call for more information. 3. Contact the [facility] for the next [facility] sponsored prescription drug collection event. , [phone], or x [phone]; Note that many narcotic pain relievers also contain Tylenol/acetaminophen. Please ensure that your total dose of acetaminophen from all sources does not exceed 3 g (3000 mg) per day. Forms: PCP List Discharge Date/Time: 10/16/23 18:33
--- NOTE | 2023-10-16 17:29 | XRAY Report ---
PROCEDURE: Finger(s) RT INDICATIONS: finger laceration TECHNIQUE: AP hand, 2 views of the first finger(s) acquired. COMPARISON: None. FINDINGS: Bones: Mild to moderate scattered degenerative changes. Moderate scattered degenerative changes. Thi s particularly involves the base of the thumb and second, fourth, fifth DIPs, where there are subluxa tions and sequelae of erosion. At the site of concern at the first distal phalangeal tuft, there is a comminuted fracture with bone abutting the nail bed. Age-indeterminate periarticular ossifications also seen around the carpal bones. Soft tissues: Soft tissue swelling is present. IMPRESSION: Comminuted fracture of the distal phalangeal tuft, likely an open fracture involving the nail bed, co rrelate with clinical exam. Moderate degenerative changes, particularly with sequelae of erosive disease and subluxations at the second, fourth, and fifth DIPs. Reviewed by: Jacob Ortega MD on 10/16/2023 5:27 PM PST Approved by: Jacob Ortega MD on 10/16/2023 5:27 PM PST Station ID: [id number]
[2023-10-16] MEDS ORDERED: cephALEXin 250 MG CAPSULE PO STA (18:02)
[2023-10-16] MEDS ORDERED: oxyCODONE/ACET 5/325 Prepack 4 PO STA (18:02)
[2023-10-16 18:36] VITALS: BP 147/68; O2SAT 99
== END 2023-10-16 18:33 | disposition home or self-care (01) ==
LOC: ED 16:42
DX: S62.521B Displaced fracture of distal phalanx of right thumb, initial encounter for open fracture (principal); W27.8XXA Contact with other nonpowered hand tool, initial encounter; Y93.89 Activity, other specified; Z94.1 Heart transplant status; N18.9 Chronic kidney disease, unspecified
CPT/HCPCS: 12001; 73140; 90471; 90715; 99283; A9270

== ENCOUNTER 2023-10-22 08:00 | Outpatient (CLI) | payer MEDICARE, OTHER ==
--- NOTE | 2023-10-22 20:25 | XRAY Report ---
PROCEDURE: Finger(s) RT INDICATIONS: RIGHT THUMB INJURY TECHNIQUE: AP hand, 3 views of the first finger(s) acquired. COMPARISON: 10/16/2023 FINDINGS: Bones: Comminuted distal phalangeal tuft fracture is again noted now with slightly increased volar an gulation of distal fracture fragment. Arthritic degenerative changes at the interphalangeal and first carpometacarpal is again noted Soft tissues: No suspicious soft tissue calcifications. IMPRESSION: Comminuted distal first phalangeal tuft fracture with internal and dorsal angulation of the distal fr acture fragments Reviewed by: Moreno Jasmine MD on 10/22/2023 7:23 PM AKST Approved by: Moreno Jasmine MD on 10/22/2023 7:23 PM AKST Station ID: [id number]
== END 2023-10-22 23:59 | disposition home or self-care (01) ==
LOC: DI.WOS 08:00
PROVIDERS: ATTEND Orthopaedic Surgery
DX: S62.521D Displaced fracture of distal phalanx of right thumb, subsequent encounter for fracture with routine healing (principal)

== ENCOUNTER 2023-12-09 08:52 | Outpatient (CLI) | payer MEDICARE, OTHER ==
--- NOTE | 2023-12-09 09:17 | Sleep Patient Instructions ---
Sleep Center Visit Summary - Patient Visit Information Reason for Visit: Annual Follow up - Patient Instructions Additional Instructions: You will continue with CPAP therapy with pressure set at 10 cmH2O. A supply prescription will be updated with your DME. Please follow up with the sleep care office in 1 year. - Clinic Information Contact: [facility] [address] [place] [address] [email or web address] T: [phone]
--- NOTE | 2023-12-09 09:22 | SLEEP CARE CONSULTATION ---
Information from patient questionnaire entered by Ayesha Bansal. I have reviewed and concur with the information entered by Ayesha Bansal. This document represents the service I personally performed and the decisions made by me, Sherie Pardo ARNP. History of Present Illness Service Date and Time: 12/09/2023 0852 Previous diagnosis: Severe, Obstructive Sleep Apnea-Hypopnea Syndrome AHI: 33.2 (in 2017)(6.3 in 2012) Reason for follow up: annual (LAST SEEN 11/2022) Equipment type: CPAP (CAMERON Dreamstation 2, s/u 10/2019) Equipment obtained from: [facility] (getting supplies as needed) Mask style: Full face Mask brand: Respironics (Dreamwear, medium frame and large cushion) Backup mask available: Yes Last cushion change: 1 month Prior sleep studies: Yes Year and Where: 2012 and 2016 - [facility] Type of Sleep Study: Polysomnography HPI additional information: CRISTIN MARQUES was diagnosed to have severe, AHI 33.2, obstructive sleep apnea- hypopnea syndrome and returned today for CPAP therapy annual follow-up. Sleep Study - Results Type of Sleep Study: Polysomnography Prior sleep studies: Yes Year and Where: 2012 and 2016 - [facility] CPAP Compliance Data - Data Reviewed with Patient Average duration of nightly device use: 7 HRS 17 MINS 53 SECS Compliance rate %: 100 (12/06/22-12/05/23; 365/365 days used) Current pressure setting (cmH2O): 10 Average residual AHI: 0.9 Central apnea: 0 Obstructive apnea: 0.1 Hypopnea: 0.8 Average large leak: 20 mins 37 secs Subjective Patient concerns: denies: aerophagia, mask discomfort, air blowing in eyes, mask leak noise, condensation in mask/hose, nasal congestion, dry mouth, nose, throat, epistaxis Observed to snore while using device: No Current pressure setting perceived as: comfortable On therapy, patient: reports: sleeping better, awakening more refreshed, being more awake and alert during the day, more rested overall. denies: drowsiness while driving Initial Howe Sleepiness Scale score: 5 (in 2012) Current Howe Sleepiness Scale score: 5 (12/09/23) Allergies and Home Medications Known drug allergies: Yes (as listed) Drug allergies reviewed: Yes Home medication list reviewed: Yes (no changes) Allergy and home medication list: Allergies droperidol [Droperidol] Allergy (Severe, Verified 12/07/23 09:46) Hallucinations "climbed the [place]ren" codeine phosphate * [From Tylenol-Codeine #3] Allergy (Mild, Verified 12/07/23 09:46) Rash acetaminophen [From Tylenol-Codeine #3] Allergy (Unknown, Verified 12/07/23 09:46) UNKNOWN avocado [Avocado] Allergy (Verified 12/07/23 09:46) Hives Review of Systems Review of systems same as previous: Yes (no changes) Physical Exam Vital signs obtained and entered by: AYESHA Stewart MA Blood Pressure: 112/54 (LEFT ARM) Cuff size: regular Heart Rate: 79 O2 Saturation: 98 Height: 6 ft Weight: 158 lb 9.6 oz Body Mass Index: 21.4 BMI Classification: Normal Impression and Plan 1. Obstructive Sleep Apnea-Hypopnea Syndrome, severe, with good treatment compliance and good apnea control. On CPAP therapy, the patient has better sleep quality and is more rested overall. He comes in today because he needs an updated prescription for supplies. Patient has significant improvement of their sleep apnea and is satisfied with current CPAP therapy. Patient denies problems with oral dryness, nasal congestion, epistaxis, skin irritation or aerophagia. Patient's apnea severity and rationale for treatment to reduce apnea, improve sleep quality and reduce cardiovascular and cerebrovascular events was reviewed. I also reviewed the benefit of consistent device use of CPAP for hypertension and arrhythmia. * Continue CPAP pressure at 10 cmH2O * Update supply prescription * Notify me if snoring with mask or feeling that the pressure is too much or too little * Call this office if any problems using CPAP * Return for follow up in 12 months, or sooner if concerns arise Counseling Topics: Spare mask Prescriptions: Device supplies Follow up with Sleep Care in: 1 year Visit Type: In Office Time Spent with Patient (minutes): 20 Provider Statement: I spent 100% of the Face to Face Visit with the patient with greater than 50% spent counseling the patient and coordination of care.
[2023-12-09 09:31] VITALS: BP 112/54; O2SAT 98
== END 2023-12-09 08:53 | disposition home or self-care (01) ==
LOC: SC 08:52
PROVIDERS: ATTEND Nurse Practitioner Family
DX: G47.33 Obstructive sleep apnea (adult) (pediatric) (principal)
CPT/HCPCS: 99213; G0463; 99212

== ENCOUNTER 2024-01-13 08:29 | Outpatient (CLI) | payer MEDICARE, OTHER ==
[2024-01-13 08:44] LABS: BASOPHILS % (AUTO) 0.5 %; EOSINOPHILS # (AUTO) 0.1 10^3/uL (0.0-0.7); EOSINOPHILS % (AUTO) 2.7 %; HCT - HEMATOCRIT 36.7 % (42.0-52.0); HGB - HEMOGLOBIN 11.3 g/dL (14.0-18.0); LYMPHOCYTES # (AUTO) 1.4 10^3/uL (1.5-3.5); LYMPHOCYTES % (AUTO) 35.1 %; MEAN CORPUSCULAR HEMOGLOBIN 29.8 pg (27.0-31.0); MEAN CORPUSCULAR HGB CONC 30.8 g/dL (32.0-36.0); MEAN CORPUSCULAR VOLUME 96.8 fL (80.0-94.0); MEAN PLATELET VOLUME 9.6 fL (7.4-11.4); MONOCYTES # (AUTO) 0.5 10^3/uL (0.0-1.0); MONOCYTES % (AUTO) 11.5 %; NEUTROPHILS % (AUTO) 49.7 %; PLT - PLATELET COUNT 141 10^3/uL (130-450); RED BLOOD COUNT 3.79 10^6/uL (4.70-6.10); RED CELL DISTRIBUTION WIDTH 13.8 % (12.0-15.0); WHITE BLOOD COUNT 4.1 x10^3/uL (4.8-10.8)
[2024-01-13 09:14] LABS: CHOL/HDL RATIO 1.9 (<5.0); CHOLESTEROL 111 mg/dL; HDL CHOLESTEROL 58 mg/dL; LDL CHOLESTEROL,CALCULATED 31 mg/dL; LDL/HDL RATIO 0.5 (<3.6); TRIGLYCERIDES 109 mg/dL (48-352); VLDL CHOLESTEROL 22 mg/dL
[2024-01-13 09:19] LABS: THYROID STIMULATING HORMONE 5.25 uIU/mL (0.34-5.60)
[2024-01-13 09:23] LABS: BUN - BLOOD UREA NITROGEN 91 mg/dL (6-20)
[2024-01-13 09:27] LABS: ALBUMIN/GLOBULIN RATIO 2.2 (1.0-2.2); ALKALINE PHOSPHATASE 47 IU/L (42-121); ALT ALANINE AMINOTRANSFERASE 25 IU/L (10-60); AST ASPARTATE AMINOTRANSFERASE 19 IU/L (10-42); BILIRUBIN,TOTAL 0.6 mg/dL (0.2-1.0); CALCIUM 9.5 mg/dL (8.5-10.3); CARBON DIOXIDE - CO2 25 mmol/L (21-32); CHLORIDE 105 mmol/L (101-111); CREATININE 2.9 mg/dL (0.6-1.3); GFR - MDRD 21 (>89); GLUCOSE 89 mg/dL (74-104); SODIUM 136 mmol/L (135-145); TOTAL PROTEIN 5.8 g/dL (6.4-8.9)
== END 2024-01-13 08:30 | disposition home or self-care (01) ==
LOC: LAB 08:29
PROVIDERS: ATTEND Family Medicine
DX: I10 Essential (primary) hypertension (principal); B02.9 Zoster without complications; I48.92 Unspecified atrial flutter; Z94.1 Heart transplant status
CPT/HCPCS: 36415; 80053; 80061; 81599; 83721; 84443; 85025